=== PATIENT | female | born 1980 | race Caucasian/White ===

== ENCOUNTER → 2020-02-28 09:13 | Outpatient (BNVA) | payer MEDICAID, SELFPAY | PROVIDERS: Family Provider Nurse Practitioner Family; PCP Nurse Practitioner Family; Visit Provider Internal Medicine Rheumatology | DX: L40.8 Other psoriasis (principal); M19.90 Unspecified osteoarthritis, unspecified site; Z11.59 Encounter for screening for other viral diseases; Z79.899 Other long term (current) drug therapy; R76.8 Other specified abnormal immunological findings in serum; M54.5 Low back pain; F17.210 Nicotine dependence, cigarettes, uncomplicated; Z11.1 Encounter for screening for respiratory tuberculosis; Z72.89 Other problems related to lifestyle | CPT/HCPCS: 99204 ==

== ENCOUNTER 2020-02-28 10:31 | Outpatient (CLI) | payer MEDICAID, SELFPAY ==
--- NOTE | 2020-02-28 10:37 | XR_ITS ---
WS: [id number] LEFT HAND: 3 VIEW(S) TECHNIQUE: PA, oblique and lateral. HISTORY: inflammatory arthritis COMPARISON: None available. No acute fracture or dislocation. No soft tissue or bone abnormality. No erosions. XR/XR hand LT min 3V* [id number] IMPRESSION: Normal LEFT hand.
--- NOTE | 2020-02-28 10:37 | XR_ITS ---
WS: [id number] RIGHT FOOT: 3 VIEW(S) TECHNIQUE: AP, oblique and lateral. HISTORY: inflammatory arthritis COMPARISON: None available. No acute fracture or dislocation. Normal tarsal/metatarsal alignment. No soft tissue abnormality or bone destruction. XR/XR foot RT min 3V* [id number] IMPRESSION: Normal RIGHT foot.
--- NOTE | 2020-02-28 10:37 | XR_ITS ---
WS: [id number] LEFT FOOT: 3 VIEW(S) TECHNIQUE: AP, oblique and lateral. HISTORY: inflammatory arthritis COMPARISON: None available. No acute fracture or dislocation. Normal tarsal/metatarsal alignment. No soft tissue abnormality or bone destruction. XR/XR foot LT min 3V* [id number] IMPRESSION: Normal LEFT foot.
--- NOTE | 2020-02-28 10:37 | XR_ITS ---
WS: [id number] CHEST 2 VIEWS HISTORY: inflammatory arthritis COMPARISON: None available. Lungs: Hyperinflation and flattening of the diaphragms. Otherwise lungs are clear. No pneumonia. No n odules. Cardiac size: Normal. Mediastinum/Aorta: Normal mediastinum. Bones: Normal. XR/XR chest 2V* [id number] IMPRESSION: Mild emphysema. Otherwise negative.
--- NOTE | 2020-02-28 10:37 | XR_ITS ---
WS: [id number] RIGHT HAND: 3 VIEW(S) TECHNIQUE: PA, oblique and lateral. HISTORY: inflammatory arthritis COMPARISON: None available. No acute fracture or dislocation. No soft tissue or bone abnormality. No erosions. XR/XR hand RT min 3V* [id number] IMPRESSION: Normal RIGHT hand.
== END 2020-02-28 10:32 | disposition home or self-care (01) ==
LOC: RADWPI 10:36
PROVIDERS: Family Provider Nurse Practitioner Family; PCP Nurse Practitioner Family; Visit Provider Internal Medicine Rheumatology
DX: L40.8 Other psoriasis (principal); M19.90 Unspecified osteoarthritis, unspecified site; Z11.59 Encounter for screening for other viral diseases; Z79.899 Other long term (current) drug therapy; R76.8 Other specified abnormal immunological findings in serum; M54.5 Low back pain; F17.210 Nicotine dependence, cigarettes, uncomplicated; Z11.1 Encounter for screening for respiratory tuberculosis; Z72.89 Other problems related to lifestyle; J43.9 Emphysema, unspecified
CPT/HCPCS: 36415; 71046; 73130; 73630; 80076; 82306; 82565; 85025; 85651; 86140; 86480; 86704; 86803; 86812; 87340

== ENCOUNTER → 2020-03-31 15:00 | Outpatient (BNVA) | payer MEDICAID, SELFPAY | PROVIDERS: Family Provider Nurse Practitioner Family; PCP Nurse Practitioner Family; Visit Provider Internal Medicine Rheumatology | DX: L40.3 Pustulosis palmaris et plantaris (principal); L40.50 Arthropathic psoriasis, unspecified; M19.90 Unspecified osteoarthritis, unspecified site; R76.8 Other specified abnormal immunological findings in serum; L40.9 Psoriasis, unspecified; M54.5 Low back pain; G89.29 Other chronic pain; M54.31 Sciatica, right side | CPT/HCPCS: 99214 ==

== ENCOUNTER → 2020-04-30 08:57 | Outpatient (BNVA) | payer MEDICAID, SELFPAY | PROVIDERS: Family Provider Nurse Practitioner Family; PCP Nurse Practitioner Family; Visit Provider Internal Medicine Rheumatology | DX: Z79.899 Other long term (current) drug therapy (principal) | CPT/HCPCS: 36415; 80076; 82565; 85025; 85651; 86140 ==

== ENCOUNTER 2020-05-22 13:18 | Outpatient (CLI) | payer MEDICAID, SELFPAY ==
[2020-05-22] MEDS: iohexol 300 mg/mL 50 mL Btl PO (13:43)
--- NOTE | 2020-05-22 15:00 | CT_ITS ---
WS: [id number] CT ABDOMEN AND PELVIS WITH CONTRAST HISTORY: Abdominal pain, RIGHT upper abdominal pain. TECHNIQUE: Imaging performed of the abdomen and pelvis with IV contrast. Single phase imaging of the abdomen. Coronal and sagittal reformats are submitted. All CT scans at [facility] use at least one of these dose optimization techniques: automated exposure control; mA and/or kV adjustment per patient size (includes targeted exams where dose is matched to clinical indication); or iterativ e reconstruction. IV CONTRAST: Omnipaque 300; 95 mL IV. Oral contrast: Yes. DLP: 1093.11 mGycm COMPARISON: None available. Lower thorax: Lung bases are clear. Heart is normal size. No hiatal hernia. Liver/biliary system: Normal size with no intrahepatic dilatation. Gallbladder: Normal. No gallstones or wall thickening. No pericholecystic fluid. Pancreas: Normal. Spleen: Normal. Adrenal glands: Normal. Right kidney: Normal. Left kidney: Cortical hypodensity in the lower pole measures 8 mm. No obstruction or calcifications. Aorta: Normal. Lymphadenopathy: None. Free fluid: None. GI tract: The appendix has been surgically removed. No GI tract obstruction. There are very few diver ticula in the sigmoid colon. No evidence for acute inflammation. No mucosal thickening or edema. Abdominal wall: Unremarkable abdominal wall. No hernia. Pelvis: Uterus is midline. Both ovaries contain small follicles. No free fluid or adenopathy. Urinary bladder is minimally distended. Bones: Grade 1 anterolisthesis of L5 due to bilateral pars defects. Anterolisthesis [address]/CT abdomen pelvis w con* [id number] IMPRESSION: 1. No acute abdominal or pelvic abnormalities. 2. Prior appendectomy. 3. No acute inflammatory process.
[2020-05-22] MEDS: iohexol 300 mg/mL 100 mL Btl IV (15:01)
== END 2020-05-22 13:19 | disposition home or self-care (01) ==
LOC: RADWPI 13:21
PROVIDERS: Family Provider Nurse Practitioner Family; PCP Nurse Practitioner Family; Visit Provider Nurse Practitioner Family
DX: R10.11 Right upper quadrant pain (principal)
CPT/HCPCS: 74177; Q9967

== ENCOUNTER → 2020-07-15 09:04 | Outpatient (BNVA) | payer MEDICAID, SELFPAY | PROVIDERS: Family Provider Nurse Practitioner Family; PCP Nurse Practitioner Family; Visit Provider Internal Medicine Rheumatology | DX: L40.50 Arthropathic psoriasis, unspecified (principal); M19.90 Unspecified osteoarthritis, unspecified site; Z79.899 Other long term (current) drug therapy; R76.8 Other specified abnormal immunological findings in serum; L40.3 Pustulosis palmaris et plantaris; M47.816 Spondylosis without myelopathy or radiculopathy, lumbar region; G89.29 Other chronic pain; F17.210 Nicotine dependence, cigarettes, uncomplicated | CPT/HCPCS: 99214 ==

== ENCOUNTER → 2020-07-22 11:10 | Outpatient (BNVA) | payer MEDICAID, SELFPAY | PROVIDERS: Family Provider Nurse Practitioner Family; PCP Nurse Practitioner Family; Visit Provider Nurse Practitioner Family | DX: R35.0 Frequency of micturition (principal) | CPT/HCPCS: 81000 ==

== ENCOUNTER → 2020-07-30 16:30 | Outpatient (BNVA) | payer MEDICAID, SELFPAY | PROVIDERS: Family Provider Nurse Practitioner Family; PCP Nurse Practitioner Family; Visit Provider Nurse Practitioner Family | DX: Z20.828 Contact with and (suspected) exposure to other viral communicable diseases (principal) | CPT/HCPCS: 87635 ==

== ENCOUNTER → 2020-08-04 15:04 | Outpatient (BNVA) | payer MEDICAID, SELFPAY | PROVIDERS: Family Provider Nurse Practitioner Family; PCP Nurse Practitioner Family; Visit Provider Nurse Practitioner Family | DX: R68.89 Other general symptoms and signs (principal) | CPT/HCPCS: 87400 ==

== ENCOUNTER → 2020-08-26 15:17 | Outpatient (BNVA) | payer MEDICAID, SELFPAY | PROVIDERS: Family Provider Nurse Practitioner Family; PCP Nurse Practitioner Family; Visit Provider Internal Medicine Rheumatology | DX: L40.50 Arthropathic psoriasis, unspecified (principal); Z79.899 Other long term (current) drug therapy; L40.3 Pustulosis palmaris et plantaris; G57.03 Lesion of sciatic nerve, bilateral lower limbs; B34.9 Viral infection, unspecified; M47.816 Spondylosis without myelopathy or radiculopathy, lumbar region; F17.210 Nicotine dependence, cigarettes, uncomplicated | CPT/HCPCS: 36415; 80076; 82565; 85025; 85651; 86140; 99214 ==

== ENCOUNTER → 2020-10-29 14:56 | Outpatient (BNVA) | payer BC, MEDICAID, SELFPAY | PROVIDERS: Family Provider Nurse Practitioner Family; PCP Nurse Practitioner Family; Visit Provider Nurse Practitioner Family | DX: M54.9 Dorsalgia, unspecified (principal); M54.6 Pain in thoracic spine; M54.5 Low back pain; G89.29 Other chronic pain | CPT/HCPCS: 81000 ==

== ENCOUNTER 2020-11-03 09:18 | Outpatient (CLI) | payer BC, MEDICAID, SELFPAY ==
--- NOTE | 2020-11-03 09:30 | MR_ITS ---
WS: [id number] MRI RIGHT KNEE NONCONTRAST TECHNIQUE: Axial PD, coronal PD fat sat, coronal PD, sagittal PD, and sagittal PD fat-sat images obta ined. CLINICAL INFORMATION: M25.569 - Pain in unspecified knee COMPARISON: None. FINDINGS: Normal ACL and normal PCL. Small suprapatellar effusion. Mild chronic thinning of the medial and late ral meniscus. No acute appearing meniscal tears. Moderate chondromalacia patella. No subchondral trisha a. Normal medial and lateral patellar retinaculum. Normal medial and lateral collateral ligaments. Moderate chondromalacia involving the medial and late ral joint compartments somewhat advanced for patient this age. No subchondral edema. Normal popliteal fossa. No Lopez's cyst. MR/MR knee RT wo con* [id number] IMPRESSION: 1. Normal anterior and posterior cruciate ligaments. 2. No acute appearing meniscal tears. Mild chronic thinning of the medial and lateral meniscus. 3. Moderate chondromalacia involving the medial lateral joint compartments yon ewhat advanced for patient this age. 4. Moderate chondral malacia patella. No subchondral edema. 5. Normal medial and lateral collateral ligaments.
== END 2020-11-03 09:19 | disposition home or self-care (01) ==
LOC: RADSHAW 09:22
PROVIDERS: Family Provider Nurse Practitioner Family; PCP Nurse Practitioner Family; Visit Provider Nurse Practitioner Family
DX: M22.41 Chondromalacia patellae, right knee (principal)
CPT/HCPCS: 73721

== ENCOUNTER → 2020-11-18 08:15 | Outpatient (BNVA) | payer BC, MEDICAID, SELFPAY | PROVIDERS: Family Provider Nurse Practitioner Family; PCP Nurse Practitioner Family; Referring Provider Nurse Practitioner Family; Visit Provider Orthopaedic Surgery | DX: M25.561 Pain in right knee (principal) | CPT/HCPCS: 73560; 73565 ==

== ENCOUNTER → 2020-11-20 10:45 | Outpatient (BNVA) | payer BC, MEDICAID, SELFPAY | PROVIDERS: Family Provider Nurse Practitioner Family; PCP Nurse Practitioner Family; Visit Provider Internal Medicine Rheumatology | DX: Z79.899 Other long term (current) drug therapy (principal) | CPT/HCPCS: 80076; 82565; 85025; 85651; 86140 ==

== ENCOUNTER → 2020-11-27 09:56 | Outpatient (BNVA) | payer BC, MEDICAID, SELFPAY | PROVIDERS: Family Provider Nurse Practitioner Family; PCP Nurse Practitioner Family; Visit Provider Internal Medicine Rheumatology | DX: R76.8 Other specified abnormal immunological findings in serum (principal); L40.50 Arthropathic psoriasis, unspecified; L40.3 Pustulosis palmaris et plantaris; M17.11 Unilateral primary osteoarthritis, right knee; M25.469 Effusion, unspecified knee; M54.31 Sciatica, right side; Z79.899 Other long term (current) drug therapy; F17.210 Nicotine dependence, cigarettes, uncomplicated | CPT/HCPCS: 99214 ==

== ENCOUNTER → 2020-12-19 09:46 | Outpatient (BNVA) | payer BC, MEDICAID, SELFPAY | PROVIDERS: Family Provider Nurse Practitioner Family; PCP Nurse Practitioner Family; Visit Provider Nurse Practitioner Family | DX: Z20.822 Contact with and (suspected) exposure to COVID-19 (principal) | CPT/HCPCS: 87635 ==

== ENCOUNTER → 2020-12-25 09:39 | Outpatient (BNVA) | payer BC, MEDICAID, SELFPAY | PROVIDERS: Family Provider Nurse Practitioner Family; PCP Nurse Practitioner Family; Visit Provider Internal Medicine Rheumatology | DX: Z79.899 Other long term (current) drug therapy (principal) | CPT/HCPCS: 36415; 80076; 82565; 85025; 86140 ==

== ENCOUNTER → 2021-04-02 08:46 | Outpatient (BNVA) | payer BC, MEDICAID, SELFPAY | PROVIDERS: Family Provider Nurse Practitioner Family; PCP Nurse Practitioner Family; Visit Provider Internal Medicine Rheumatology | DX: L40.50 Arthropathic psoriasis, unspecified (principal); Z79.899 Other long term (current) drug therapy | CPT/HCPCS: 80076; 82565; 85025; 86140 ==

== ENCOUNTER → 2021-04-06 10:35 | Outpatient (BNVA) | payer BC, MEDICAID, SELFPAY | PROVIDERS: Family Provider Nurse Practitioner Family; PCP Nurse Practitioner Family; Visit Provider Internal Medicine Rheumatology | DX: L40.50 Arthropathic psoriasis, unspecified (principal); Z79.899 Other long term (current) drug therapy; L40.3 Pustulosis palmaris et plantaris; M77.01 Medial epicondylitis, right elbow; M77.11 Lateral epicondylitis, right elbow; M77.02 Medial epicondylitis, left elbow; F17.210 Nicotine dependence, cigarettes, uncomplicated | CPT/HCPCS: 99214 ==

== ENCOUNTER → 2021-04-10 13:47 | Outpatient (BNVA) | payer BC, MEDICAID, SELFPAY | PROVIDERS: Family Provider Nurse Practitioner Family; PCP Nurse Practitioner Family; Visit Provider Nurse Practitioner Family | DX: R30.0 Dysuria (principal); T50.905A Adverse effect of unspecified drugs, medicaments and biological substances, initial encounter | CPT/HCPCS: 81000 ==

== ENCOUNTER → 2021-08-05 10:51 | Outpatient (BNVA) | payer BC, MEDICAID, SELFPAY | PROVIDERS: Family Provider Nurse Practitioner Family; PCP Nurse Practitioner Family; Visit Provider Internal Medicine Rheumatology | DX: L40.50 Arthropathic psoriasis, unspecified (principal); L40.3 Pustulosis palmaris et plantaris; Z79.899 Other long term (current) drug therapy; M77.10 Lateral epicondylitis, unspecified elbow; M47.896 Other spondylosis, lumbar region; M17.11 Unilateral primary osteoarthritis, right knee; M54.31 Sciatica, right side; M54.32 Sciatica, left side; K02.9 Dental caries, unspecified; Z71.89 Other specified counseling; F17.210 Nicotine dependence, cigarettes, uncomplicated | CPT/HCPCS: 99214 ==

== ENCOUNTER → 2021-08-06 11:09 | Outpatient (BNVA) | payer BC, MEDICAID, SELFPAY | PROVIDERS: Family Provider Nurse Practitioner Family; PCP Nurse Practitioner Family; Visit Provider Internal Medicine Rheumatology | DX: L40.50 Arthropathic psoriasis, unspecified (principal); Z79.899 Other long term (current) drug therapy; Z71.89 Other specified counseling | CPT/HCPCS: G0463 ==

== ENCOUNTER 2021-10-10 15:06 | Emergency (ER) | payer BC, MEDICAID, SELFPAY ==
[2021-10-10 15:17] VITALS: BP 162/89; PULSE 73; RESP 16; TEMP 36.7; O2SAT 97
--- NOTE | 2021-10-10 15:28 | ECG_ITS ---
[facility] Test Date: 2021-10-10 Pat Name: Barbara Louis Department: Room: Gender: Female Python Developer: : 1980 Requested By: Rakel Forte Order Number: [id number] Reading MD: MORENA YEE Measurements Intervals [place] Rate: 70 P: 42 OK: 151 QRS: 54 QRSD: 91 T: 40 QT: 355 QTc: 383 Interpretive Statements SINUS RHYTHM No previous ECG available for comparison Electronically Signed On 10-11-2021 19:58:59 [employer] by MORENA YEE [email or web address]
--- NOTE | 2021-10-10 15:28 | XRR_ITS ---
PROCEDURE INFORMATION: Exam: XR Chest Exam date and time: 10/10/2021 3:28 PM Age: 41 years old Clinical indication: Cough; Additional info: Chest pain TECHNIQUE: Imaging protocol: XR of the chest. Views: 1 view. COMPARISON: CR XR knees AP WB w RT lmt ORTH 11/18/2020 8:21 AM FINDINGS: Lungs: Lungs are clear. Pleural spaces: There is no pleural effusion or pneumothorax. Heart/Mediastinum: Cardiomediastinal contours are unremarkable. Bones/joints: Bones are unremarkable. XR/XR chest 1V portable [id number] IMPRESSION: No acute findings.
== END 2021-10-10 16:53 | disposition left against medical advice (07) ==
LOC: ER 15:49
PROVIDERS: Emergency Provider Family Medicine; PCP Nurse Practitioner Family
DX: Z53.21 Procedure and treatment not carried out due to patient leaving prior to being seen by health care provider (principal)
CPT/HCPCS: 71045; 93005; 99282

== ENCOUNTER → 2021-10-13 10:24 | Outpatient (BNVA) | payer BC, MEDICAID, SELFPAY | PROVIDERS: PCP Nurse Practitioner Family; Visit Provider Nurse Practitioner Family | DX: R53.83 Other fatigue (principal) | CPT/HCPCS: 85025 ==

== ENCOUNTER → 2021-10-26 09:27 | Outpatient (BNVA) | payer BC, MEDICAID, SELFPAY | PROVIDERS: PCP Nurse Practitioner Family; Visit Provider Nurse Practitioner Family | DX: E78.5 Hyperlipidemia, unspecified (principal); I10 Essential (primary) hypertension; M19.90 Unspecified osteoarthritis, unspecified site; Z79.899 Other long term (current) drug therapy | CPT/HCPCS: 80053; 80061; 80076; 82565; 86140 ==

== ENCOUNTER → 2021-11-16 11:34 | Outpatient (BNVA) | payer BC, MEDICAID, SELFPAY | PROVIDERS: PCP Nurse Practitioner Family; Visit Provider Nurse Practitioner Family | DX: Z20.822 Contact with and (suspected) exposure to COVID-19 (principal); R50.9 Fever, unspecified | CPT/HCPCS: 87633; 87635 ==

== ENCOUNTER → 2021-12-10 09:58 | Outpatient (BNVA) | payer BC, MEDICAID, SELFPAY | PROVIDERS: PCP Nurse Practitioner Family; Visit Provider Internal Medicine Rheumatology | DX: L40.50 Arthropathic psoriasis, unspecified (principal); L40.3 Pustulosis palmaris et plantaris; Z79.899 Other long term (current) drug therapy; M47.896 Other spondylosis, lumbar region; M17.11 Unilateral primary osteoarthritis, right knee; G57.03 Lesion of sciatic nerve, bilateral lower limbs; K02.9 Dental caries, unspecified; Z71.89 Other specified counseling | CPT/HCPCS: 99214 ==

== ENCOUNTER → 2022-03-11 14:09 | Outpatient (BNVA) | payer BC, MEDICAID, SELFPAY | PROVIDERS: PCP Nurse Practitioner Family; Visit Provider Internal Medicine Rheumatology | DX: L40.50 Arthropathic psoriasis, unspecified (principal); L40.3 Pustulosis palmaris et plantaris; Z79.899 Other long term (current) drug therapy; G57.03 Lesion of sciatic nerve, bilateral lower limbs; Z71.89 Other specified counseling | CPT/HCPCS: 80076; 82565; 85025; 86140; 99214 ==

== ENCOUNTER → 2022-07-07 15:08 | Outpatient (BNVA) | payer BC, MEDICAID, SELFPAY | PROVIDERS: PCP Nurse Practitioner Family; Visit Provider Nurse Practitioner Family | DX: N89.8 Other specified noninflammatory disorders of vagina (principal); Z12.39 Encounter for other screening for malignant neoplasm of breast; Z12.4 Encounter for screening for malignant neoplasm of cervix | CPT/HCPCS: 87070; 87205; 88175 ==

== ENCOUNTER 2022-07-08 11:15 | Outpatient (CLI) | payer BC, MEDICAID, SELFPAY ==
--- NOTE | 2022-07-08 11:28 | XR_ITS ---
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 Findings: No compression fractures are seen. There is degenerative disc narrowing at L5-S1 with a 0.8 cm sublu xation of L5 on S1. There is disc narrowing at L4-L5. The transverse processes and SI joints are norm al. There is a slight dextroscoliosis of the lumbar spine. XR/XR lumbar spine 2-3V* [id number] Impression: 1. Degenerative disc narrowing at L5-S1 with a 0.8 cm subluxation of L5 on S1. 2. Degenerative disc narrowing at L4-L5 with a minimal dextroscoliosis.
--- NOTE | 2022-07-08 11:28 | XR_ITS ---
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 Findings: No fractures or dislocations are seen. The SI joints and pubic symphysis are intact. The soft tissues are not remarkable. XR/XR pelvis 1-2V* [id number] Impression: Negative for fracture.
--- NOTE | 2022-07-08 11:28 | XR_ITS ---
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 There is medial joint compartment narrowing with small spurs o f the medial femoral condyle and medial tibial plateau. The patella is intact. The soft tissues are u nremarkable. XR/XR knee RT 3V* [id number] Impression: Minimal medial joint compartment narrowing and spurring of the right knee Kellgren-Jose Classification: grade 1 (doubtful): doubtful joint space narr owing and possible osteophytic lipping
--- NOTE | 2022-07-08 11:28 | XR_ITS ---
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 There is minimal medial joint compartment narrowing with small spurs of the medial femoral condyle and medial tibial plateau. The patella is intact. The soft tissu es are unremarkable. XR/XR knee LT 3V* [id number] Impression: Mild osteoarthritis of the left knee Kellgren-Jose Classification: grade 1 (doubtful): doubtful joint space narr owing and possible osteophytic lipping
[2022-07-08 12:04] LABS: Basophils # 0.1 10^3/uL (0.0-0.1); Basophils % 1.3 %; Eosinophils # 0.3 10^3/uL (0.0-0.8); Eosinophils % 3.1 %; Hematocrit 42.8 % (37.0-47.0); Hemoglobin 13.8 g/dL (11.5-15.3); Lymphocytes # 3.8 10^3/uL (0.8-4.8); Lymphocytes % 36.9 %; Mean Corpuscular HGB Conc 32.2 g/dL (30.0-36.0); Mean Corpuscular Hemoglobin 30.4 pg (28.0-34.0); Mean Corpuscular Volume 94.3 fl (81-99); Mean Platelet Volume 9.9 fL (7.4-10.4); Monocytes # 0.8 10^3/uL (0.2-0.9); Monocytes % 7.5 %; Neutrophils # 5.22 10^3/uL (1.8-7.7); Neutrophils % 50.9 %; Nucleated Red Blood Cells % 0 %; Platelet Count 298 10^3/cmm (130-400); Red Blood Count 4.54 10^6/uL (4.1-5.3); White Blood Count 10.3 10^3/uL (4.0-10.0)
[2022-07-08 12:15] LABS: Erythrocyte Sedimentation Rate 6 mm/hr (0-15)
[2022-07-08 12:34] LABS: Alanine Aminotransferase 19 U/L (0-33); Albumin Level 4.1 g/dL (3.5-5.2); Alkaline Phosphatase 98 U/L (35-105); Aspartate Amino Transferase 14 U/L (0-32); C Reactive Protein 4.1 mg/L (0.0-4.9); Free T4 Free Thyroxine 1.03 ng/dL (0.82-1.77); Globulin 2.9 g/dL (1.3-4.6); Glomerular Filtration Rate 111.3 mL/min (90-130); Thyroid Stimulating Hormone 1.46 uIU/mL (0.27-4.20); Total Bilirubin 0.2 mg/dL (0.15-1.2)
[2022-07-08 13:14] LABS: 25 Hydroxy Vitamin D 27 ng/mL (30-100)
== END 2022-07-08 11:16 | disposition home or self-care (01) ==
LOC: LAB 11:16
PROVIDERS: PCP Nurse Practitioner Family; Visit Provider Internal Medicine Rheumatology
DX: Z79.899 Other long term (current) drug therapy (principal); L40.50 Arthropathic psoriasis, unspecified; S33.39XA Dislocation of other parts of lumbar spine and pelvis, initial encounter; X58.XXXA Exposure to other specified factors, initial encounter; M41.86 Other forms of scoliosis, lumbar region; M17.12 Unilateral primary osteoarthritis, left knee
CPT/HCPCS: 36415; 72100; 72170; 73562; 80076; 82306; 82565; 84439; 84443; 85025; 85651; 86140

== ENCOUNTER 2022-07-14 10:16 | Outpatient (CLI) | payer BC, MEDICAID, SELFPAY ==
--- NOTE | 2022-07-14 11:14 | MM_ITS ---
WS: [id number] Bilateral screening 3D tomosynthesis digital mammogram, 07/14/2022 Clinical Data: Z12.39 - Encounter for other screening for malignant neop... Comparison: 08/16/2019. Findings: The breast parenchymal pattern shows glandular tissue. No spiculated masses or clustered calcificatio ns are seen. There are no secondary signs of carcinoma. MM/[place] [id number] Impression: 1. Negative bilateral mammogram unchanged. 2. Recommend annual screening mammograms. BIRADS: 1-Negative FOLLOW UP: 1 Year Follow-up The CAD loading checker was used.
== END 2022-07-14 10:17 | disposition home or self-care (01) ==
LOC: RAD 10:18
PROVIDERS: PCP Nurse Practitioner Family; Visit Provider Nurse Practitioner Family
DX: Z12.31 Encounter for screening mammogram for malignant neoplasm of breast (principal)
CPT/HCPCS: 77063; 77067

== ENCOUNTER 2022-08-05 08:27 | Outpatient (CLI) | payer BC, MEDICAID, SELFPAY ==
--- NOTE | 2022-08-05 09:30 | MR_ITS ---
WS: [id number] MRI LUMBAR SPINE NONCONTRAST TECHNIQUE: Sagittal T1, T2 and STIR imaging. Axial T1 and T2 imaging. CLINICAL INFORMATION: M47.27 - Other spondylosis with radiculopathy, lumbosacra... COMPARISON: CT lumbar 2016 FINDINGS: Mild lumbar curve. No acute compression. Grade 1 anterolisthesis L5 on S1 measuring 7 mm with chronic spondylolysis slightly progressed compared to 16. No acute compression fractures. Small disc protru sions in the lower thoracic spine more prominent at T9-T10. T12-L1: Shallow LEFT pericentral protrusion. Slight effacement of ventral thecal sac. Spinal canal an d foramen are patent. Mild facet arthropathy. L1-L2: Mild facet arthropathy. Mild LEFT and no significant RIGHT foraminal narrowing. Slight narrowi ng of the LEFT subarticular recess. L2-L3: No significant disc bulging. Mild facet arthropathy. Spinal canal and foramen are patent. L3-L4: Mild annular bulging. Tiny central protrusion. Moderate facet arthropathy. Mild bilateral fora jolie narrowing. Spinal canal is patent. L4-L5: Shallow central disc protrusion. Slight effacement of ventral thecal sac. Moderate facet arthr opathy. Mild LEFT foraminal narrowing. RIGHT foramen is patent. L5-S1: Grade 1 anterolisthesis L5 on S1 measuring 7 mm. Advanced facet arthropathy. Chronic spondylol ysis. Disc osteophyte complex impinges the traversing RIGHT S1 nerve root. Moderate RIGHT and no sign ificant LEFT foraminal narrowing. Partially evaluated RIGHT ovarian cyst measuring 2.5 x 2.4 CM. MR/MR lumbar spine wo con* [id number] IMPRESSION: 1. Mild lumbar curve. No acute compression. No high-grade central canal stenos is. 2. Grade 1 anterolisthesis L5 on S1 measuring 7 mm with chronic spondylolysis progressed compared to 2016. Moderate RIGHT L5-S1 foraminal narrowing. Impingem ent traversing RIGHT S1 nerve root in the subarticular recess. 3. Shallow LEFT pericentral protrusion L1-L2 with slight narrowing of the LEFT subarticular recess. 4. Mild bilateral L4-L5 bony foraminal narrowing. 5. Moderate facet arthropathy L3-L4 and L4-L5. Advanced arthropathy L5-S1. 6. A few small protrusions in the thoracic spine seen on the football scout imaging. 7. Shallow LEFT pericentral protrusion T12-L1 with narrowing of the LEFT subar ticular recess.
== END 2022-08-05 08:28 | disposition home or self-care (01) ==
LOC: RAD 08:28
PROVIDERS: PCP Nurse Practitioner Family; Visit Provider Nurse Practitioner Family
DX: M47.27 Other spondylosis with radiculopathy, lumbosacral region (principal); M48.07 Spinal stenosis, lumbosacral region; M51.26 Other intervertebral disc displacement, lumbar region; M51.24 Other intervertebral disc displacement, thoracic region
CPT/HCPCS: 72148

== ENCOUNTER → 2022-08-31 09:50 | Outpatient (BNVA) | payer BC, MEDICAID, SELFPAY | PROVIDERS: PCP Nurse Practitioner Family; Visit Provider Physician Assistant | DX: M47.27 Other spondylosis with radiculopathy, lumbosacral region (principal); M43.17 Spondylolisthesis, lumbosacral region; M51.26 Other intervertebral disc displacement, lumbar region | CPT/HCPCS: 72110 ==

== ENCOUNTER → 2022-09-13 16:18 | Outpatient (BNVA) | payer BC, MEDICAID, SELFPAY | PROVIDERS: PCP Nurse Practitioner Family; Visit Provider Nurse Practitioner Family | DX: R05.9 Cough, unspecified (principal); L40.50 Arthropathic psoriasis, unspecified | CPT/HCPCS: 87400 ==

== ENCOUNTER → 2022-11-01 16:11 | Outpatient (BNVA) | payer BC, MEDICAID, SELFPAY | PROVIDERS: PCP Nurse Practitioner Family; Visit Provider Nurse Practitioner Family | DX: N39.0 Urinary tract infection, site not specified (principal); E86.0 Dehydration | CPT/HCPCS: 81000 ==

== ENCOUNTER → 2022-11-09 15:27 | Outpatient (BNVA) | payer BC, MEDICAID, SELFPAY | PROVIDERS: PCP Nurse Practitioner Family; Visit Provider Internal Medicine Rheumatology | DX: Z79.899 Other long term (current) drug therapy (principal); L40.50 Arthropathic psoriasis, unspecified | CPT/HCPCS: 36415; 80076; 82565; 85025; 86140 ==

== ENCOUNTER 2022-12-12 12:23 | Emergency (ER) | payer BC, MEDICAID, SELFPAY ==
[2022-12-12 12:30] VITALS: BP 140/74; PULSE 87; RESP 20; TEMP 36.3; O2SAT 95
--- NOTE | 2022-12-12 12:55 | XRR_ITS ---
PROCEDURE INFORMATION: Exam: XR Chest Exam date and time: 12/12/2022 1:22 PM Age: 42 years old Clinical indication: Cough; Additional info: Cough congestion TECHNIQUE: Imaging protocol: Radiologic exam of the chest. Views: 1 view. COMPARISON: CR XR chest 1V portable [id number] 10/10/2021 3:54 PM FINDINGS: Lungs: Unremarkable. No consolidation. Pleural spaces: Unremarkable. No pleural effusion. No pneumothorax. Heart/Mediastinum: Unremarkable. No cardiomegaly. Bones/joints: Unremarkable. XR/XR chest 1V portable [id number] IMPRESSION: No acute findings.
--- NOTE | 2022-12-12 12:57 | ED_ITS ---
HPI - Extremity Problem General: Chief complaint: Extremity Injury, Lower Stated complaint: possible infection of biopsy site Time Seen by Provider: 12/12/22 12:25 History of Present Illness: Patient is a 42-year-old female that presents to the emergency department with complaints of foot pain and swelling. Although during our initial discussion patient also reports overall feeling poor. She has chest congestion, cough, vomiting, headache. Onset of symptoms in the last 24 hours. Patient is recently started a new medication and had biopsies to bilateral feet by her asp net c developer. New prescribed medications Xeljanz. Associated symptoms: Deny chest pain, fever(s) or rash Review of Systems General: Reports: 10 or more systems reviewed and unremarkable except in HPI and below Const: Denies: fever(s), chills, change in appetite, change in weight, fatigue or malaise Eyes: Denies: change in vision, eye discomfort, eye discharge or eye redness ENMT: Denies: throat pain, enlarged tonsils, odynophagia, hoarseness, ear or mastoid pain, ear discharge, change in hearing, tinnitus, nasal discharge, nasal congestion, post nasal drip or sinus pain Card: Denies: chest pain, palpitations, irregular heart rhythm, edema, dyspnea on exertion, orthopnea or leg pain with exertion Resp: Reports: non-productive cough and chest congestion; Denies: dyspnea, productive cough, wheezing or stridor GI: Reports: nausea and vomiting; Denies: abdominal pain, dysphagia, diarrhea, constipation, bloating, GI cramping or hematochezia : Denies: flank pain, difficulty voiding, dysuria, urinary frequency, urinary urgency, urinary hesitancy, oliguria or hematuria Musc: Denies: neck pain, back pain, extremity pain, joint pain, joint swelli ng, joint redness, joint warmth or muscle weakness Skin/Breast: Denies: rash, pruritus, erythema, photosensitivity or new lesions Neuro: Denies: headache(s), numbness in extremities, weakness in extremities, sensory changes, lack of coordination, difficulty walking, frequent falls, dizziness, confusion, Slurred speech present, difficulty communicating thoughts, seizure-like activity or involuntary movements Endo: Denies: polyuria, polydipsia or tired all the time Grover/Lymph: Denies: easy bruising or easy bleeding PFSH ED PFSH: Medical History 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 Asthma Chronic low back pain 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, lateral (tennis elbow) High risk medication use Immunization counseling Inflammatory arthritis Low back pain Palmoplantar pustular psoriasis Piriformis syndrome of both sides Psoriasis Psoriatic arthritis Tobacco abuse disorder Viral syndrome Surgical History History of laparoscopy ovarian cyst History of tubal ligation Family History Other Diabetes Hypertension Rheumatoid arthritis Denies family history of Lupus CAD (coronary artery disease) Chronic kidney disease (CKD) Cancer Stroke Social History Smoking and tobacco status: current every day smoker cigarettes Alcohol intake: current Alcohol intake frequency: holidays/special occasions only Alcohol type: wine Adopted: No Lives independently: Yes Household members: spouse, family and children Physical Exam Const: COMMON NORMALS: no acute distress, patient oriented x3 and alert GENERAL APPEARANCE: cooperative ORIENTATION/CONSCIOUSNESS: Yes awake, Yes oriented to person, Yes oriented to place and Yes oriented to time HENMT: COMMON NORMALS: normocephalic and atraumatic HEAD & SCALP: normocephalic and atraumatic FACE & SINUS: normal facial exam MOUTH: Normal oral and palatal mucosa present THROAT: posterior oropharynx normal Eye: COMMON NORMALS: Equal, round and reactive pupils present, EOMs intact bilaterally, conjunctivae normal and no scleral icterus GENERAL EYE: appearance normal, both eyes and all related structures ALIGNMENT: Yes alignment normal PERIORBITAL: periorbital findings normal CONJUNCTIVA: Yes conjunctivae normal PUPIL: Yes Equal, round and reactive pupils present Neck/C-Spine: COMMON NORMALS: full ROM GENERAL: Yes normal visual inspection Lymph: LYMPHATIC: no lymphadenopathy noted Chest: COMMONS NORMALS: normal inspection of the chest Breast/axilla insp ection: Yes no chest deformity, asymmetry, normal contours, no nodules, masses, tenderness Resp: COMMON NORMALS: normal respiratory effort, No retractions, No use of accessory muscles and clear to auscultation bilaterally EFFORT & INSPECTION: Yes able to speak in complete sentences and Yes symmetric chest movement AUSCULTATION: clear to auscultation bilaterally Cardio: COMMON NORMALS: regular rate, regular rhythm and Peripheral pulses 2+ throughout RATE: regular rate RHYTHM: regular rhythm PERIPHERAL PULSES: Peripheral pulses 2+ throughout GI: COMMON NORMALS: Normal to inspection, nondistended, normoactive bowel sounds present, Soft to palpation, non-tender and No hepatosplenomegaly present INSPECTION: Yes normal to inspection AUSCULTATION: Yes normoactive bowel sounds PALPATION: Yes Soft to palpation, Yes Tenderness to palpation present (GI) Details: LLQ and LUQ and Yes No hepatosplenomegaly present RECTAL EXAM: deferred Extremity: COMMON NORMALS: normal to inspection GENERAL: Yes normal exam except as noted Neuro: COMMON NORMALS: patient oriented x3 SENSORIUM/ORIENTATION: Yes alert, Yes oriented to person, Yes oriented to place and Yes oriented to time CRANIAL NERVES: Yes CN normal except as noted Psych: COMMON NORMALS: mental status grossly normal, Normal thought process present, cooperative, activity/motor behavior normal, denies homicidal ideation and denies suicidal ideation THOUGHT PROCESS: Normal thought process present Skin: COMMON NORMALS: no rashes or lesions noted, no wounds and turgor normal GENERAL SKIN EXAM: no rashes or lesions noted and turgor normal Course Vital Signs: Vital signs: Vital Signs Temperature 97.4 F L 12/12/22 12:30 Pulse Rate 87 12/12/22 12:30 Respiratory Rate 20 H 12/12/22 12:30 Blood Pressure 140/74 12/12/22 12:30 Pulse Oximetry 95 12/12/22 12:30 Oxygen Delivery Me thod 12/12/22 12:30 MDM - Extremity (Nontraumatic) Medical Decision Making Patient was evaluated in the emergency department for complaints of initially foot pain. Had had a biopsy done 2 weeks ago and has slowly been healing. She seems to some increased edema and erythema to the surgical biopsy site on the left medial surface of the left foot compared to the right. 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 She has developed new symptoms that are more bothersome to her. Fever, chills, headache, nausea, vomiting. She reports cough that is nonproductive and feeling of congestion. I have obtained a chest x-ray, CBC, CMP and started on IV. She is getting 500 cc of normal saline, Benadryl, Toradol, Zofran. Laboratory studies do reveal a leukocytosis but this is chronic for her with her psoriatic arthritis. Remainder of her labs are pretty unremarkable. There is no evidence of a pneumonia on the chest x-ray. We did obtain an XR abdominal series which was positive for bowel gas suggestive of enteritis. Based on her clinical presentation with nausea vomiting and chills along with tenderness in the left upper and lower quadrant is likely that she will develop diarrhea at some point. I have advised her to use good hand hygiene at home. I am giving her prescription of Zofran. Patient is to return to the emergency department if new concerning or worsening symptoms persist. questions sought and answered Lab Data 12/12/22 13:08 12/12/22 13:08 Radiology Impressions Chest X-Ray 12/12/22 12:55 IMPRESSION: No acute findings. Abdomen X-Ray 12/12/22 14:37 IMPRESSION: There are air-filled nondilated small bowel loops. This can be seen with a nonspecific enteritis. Laboratory Results WBC 17.1 10^3/uL (4.0-10.0) H 12/12/22 13:08 RBC 4.77 10^6/uL (4.1-5.3) 12/12/22 13:08 Hgb 14.5 g/dL (11.5-15.3) 12/12/22 13:08 Hct 44.1 % (37.0-47.0) 12/12/22 13:08 MCV 92.5 fl (81-99) 12/12/22 13:08 MCH 30.4 pg (28.0-34.0) 12/12/22 13:08 MCHC 32.9 g/dL (30.0-36.0) 12/12/22 13:08 RDW 12.5 % (12.1-15.1) 12/12/22 13:08 Plt Count 363 10^3/cmm (130-400) 12/12/22 13:08 MPV 9.3 fL (7.4-10.4) 12/12/22 13:08 Neut % (Auto) 67.6 % 12/12/22 13:08 Lymph % (Auto) 23.5 % 12/12/22 13:08 Nye % (Auto) 5.8 % 12/12/22 13:08 Eos % (Auto) 1.8 % 12/12/22 13:08 Baso % (Auto) 0.9 % 12/12/22 13:08 Neut # (Auto) 11.58 10^3/uL (1.8-7.7) H 12/12/22 13:08 Lymph # (Auto) 4.0 10^3/uL (0.8-4.8) 12/12/22 13:08 Nye # (Auto) 1.0 10^3/uL (0.2-0.9) H 12/12/22 13:08 Eos # (Auto) 0.3 10^3/uL (0.0-0.8) 12/12/22 13:08 Baso # (Auto) 0.2 10^3/uL (0.0-0.1) H 12/12/22 13:08 Nucleated RBC % (auto) 0 % 12/12/22 13:08 Nucleated RBCs # 0.0 /100WBC 12/12/22 13:08 Sodium 133 mmol/L (136-145) L 12/12/22 13:08 Potassium 4.1 mmol/L (3.5-5.1) 12/12/22 13:08 Chloride 98 mmol/L (98-107) 12/12/22 13:08 Carbon Dioxide 23 mmol/L (22-29) 12/12/22 13:08 Anion Gap 16.1 (5-19) 12/12/22 13:08 BUN 7 mg/dL (6-20) 12/12/22 13:08 Creatinine 0.6 mg/dL (0.5-0.9) 12/12/22 13:08 GFR Calculation 110.7 mL/min (90-130) 12/12/22 13:08 Glucose 90 mg/dL (65-115) 12/12/22 13:08 Calculated Osmolality 274 mOsm/kg (285-295) L 12/12/22 13:08 Calcium 9.5 mg/dL (8.5-10.5) 12/12/22 13:08 Urine Color Straw (Yellow) 12/12/22 12:58 Urine Appearance Clear (CLEAR) 12/12/22 12:58 Urine pH 5 (5-7) 12/12/22 12:58 Ur Specific [place] 1.005 (1.005-1.030) 12/12/22 12:58 Urine Protein Neg (Negative) 12/12/22 12:58 Urine Glucose (UA) Norm (Normal) 12/12/22 12:58 Urine Ketones Negative (Negative) 12/12/22 12:58 Urine Blood Neg (Negative) 12/12/22 12:58 Urine Nitrate Negative (Negative) 12/12/22 12:58 Urine Bilirubin Neg (Negative) 12/12/22 12:58 Urine Urobilinogen Norm mg/dL (Negative) 12/12/22 12:58 Ur Leukocyte Esterase Negative (Negative) 12/12/22 12:58 Discharge Plan Discharge Patient Disposition: Home Clinical Impression: Gastroenteritis Condition: Stable Prescriptions: New ondansetron 4 mg tablet,disintegrating 4 mg PO Q8H PRN (Reason: nausea and vomiting) Qty: 20 0RF No Action epinephrine [EpiPen 2-Pool] 0.3 mg/0.3 mL auto-injector 0.3 mg IM Q10M PRN (Reason: anaphylaxis) Qty: 2 0RF Rx Instructions: Fill 340B hydrocodone-acetaminophen 5-325 mg tablet 1 tab PO Q6H PRN (Reason: pain) 30 Days Qty: 60 0RF hydrocodone-acetaminophen 5-325 mg tablet 1 tab PO Q6H PRN (Reason: pain) 30 Days Qty: 60 0RF Xeljanz 5 mg tablet 5 mg PO DAILY Qty: 60 3RF clobetasol 0.05 % ointment 1 applic topical BID 14 Days Qty: 60 0RF Rx Instructions: Do not use in folds or on face. calcipotriene 0.005 % ointment 1 applic topical BID Qty: 60 0RF Rx Instructions: rub in gently and completely May use with clobetasol ointment. Duobrii 0.01-0.045 % lotion 1 applic topical DAILY Qty: 100 0RF Rx Instructions: Apply to both feet. Daily. bupivacaine (PF) 0.25 % (2.5 mg/mL) solution 2 ml Infiltration ONCE Qty: 1 0RF albuterol sulfate [Ventolin HFA] 90 mcg/actuation HFA aerosol inhaler 2 puff inhalation Q6H PRN (Reason: shortness of breath or wheezing) Qty: 8.5 2RF Discharge Orders: Discharge ED (Routine); Ordered 12/12/22 Ordered By: Jayson Adrian Referrals: Shai Samson MD [Primary Care Provider] - Discharge Diet: Advance as tolerated Discharge Activity: Resume usual activity Patient Instructions: Gastroenteritis (ED), Acute Nausea and Vomiting (ED), Pain Management Activity Restrictions/Additional Instructions: These return to the emergency department for new concerning or worsening symptoms Please take your Zofran and other prescriptions as perscribed Coding Level of Care Code ED Highway Research Engineer for Lis Giraldo
[2022-12-12] MEDS: ondansetron 2 mg/ML SDV 2 mL 4 MG IVP (13:07)
[2022-12-12] MEDS: diphenhydrAMINE 50 mg/mL SDV 1mL IVP (13:07)
[2022-12-12] MEDS: sodium chloride 0.9% 500 ML IV (13:07)
[2022-12-12] MEDS: ketorolac 30 mg/mL INJ IVP (13:07)
[2022-12-12 13:16] LABS: Add Urine Microscopic? NO; Charge for UA Resulting for Rev
[2022-12-12 13:20] LABS: Basophils # 0.2 10^3/uL (0.0-0.1); Basophils % 0.9 %; Eosinophils # 0.3 10^3/uL (0.0-0.8); Eosinophils % 1.8 %; Hematocrit 44.1 % (37.0-47.0); Hemoglobin 14.5 g/dL (11.5-15.3); Lymphocytes % 23.5 %; Mean Corpuscular HGB Conc 32.9 g/dL (30.0-36.0); Mean Corpuscular Hemoglobin 30.4 pg (28.0-34.0); Mean Corpuscular Volume 92.5 fl (81-99); Mean Platelet Volume 9.3 fL (7.4-10.4); Monocytes % 5.8 %; Neutrophils # 11.58 10^3/uL (1.8-7.7); Neutrophils % 67.6 %; Nucleated Red Blood Cells % 0 %; Platelet Count 363 10^3/cmm (130-400); Red Blood Count 4.77 10^6/uL (4.1-5.3); Red Cell Distribution Width 12.5 % (12.1-15.1); White Blood Count 17.1 10^3/uL (4.0-10.0)
[2022-12-12 13:24] LABS: Bilirubin Urine Neg (Negative); Blood Urine Neg (Negative); Glucose Urine UA Norm (Normal); Ketones Urine Negative (Negative); Leukocyte Esterase Urine Negative (Negative); Nitrate Urine Negative (Negative); Protein Urine Neg (Negative); Specific Gravity, Urine 1.005 (1.005-1.030); Urine Appearance Clear (CLEAR); Urine Color Straw (Yellow); Urobilinogen Urine Norm (Negative); pH Urine 5 (5-7)
[2022-12-12 13:45] LABS: Anion Gap 16.1 (5-19); Blood Urea Nitrogen 7 mg/dL (6-20); Calcium 9.5 mg/dL (8.5-10.5); Carbon Dioxide 23 mmol/L (22-29); Chloride 98 mmol/L (98-107); Glomerular Filtration Rate 110.7 mL/min (90-130); Glucose 90 mg/dL (65-115); Osmolality Calculated 274 mOsm/kg (285-295); Potassium 4.1 mmol/L (3.5-5.1); Sodium 133 mmol/L (136-145)
--- NOTE | 2022-12-12 14:37 | XRR_ITS ---
PROCEDURE INFORMATION: Exam: XR Abdomen Exam date and time: 12/12/2022 3:06 PM Age: 42 years old Clinical indication: Other: Post biopsy foot pain; Prior surgery; Surgery date: 6+ months; Surgery type: Ovarian cyst removed; Additional info: Abd pain TECHNIQUE: Imaging protocol: Radiologic exam of the abdomen. Views: 2 Views. Upright and supine views. COMPARISON: CT abdomen pelvis w con* [id number] 05/22/2020 2:59 PM FINDINGS: Gastrointestinal tract: There are air-filled nondilated small bowel loops in the abdomen. No dilated loops of bowel are seen. Air and stool is present throughout the colon and in the rectal vault. Intraperitoneal space: Normal. No free air. Bones/joints: Unremarkable for age. XR/XR abdomen min 2V [id number] IMPRESSION: There are air-filled nondilated small bowel loops. This can be seen with a nonspecific enteritis.
[2022-12-12 15:43] VITALS: BP 140/74; PULSE 87; RESP 20; O2SAT 95
== END 2022-12-12 15:44 | disposition home or self-care (01) ==
PROVIDERS: Emergency Provider Nurse Practitioner; PCP Internal Medicine Rheumatology
DX: L76.82 Other postprocedural complications of skin and subcutaneous tissue (principal); Y83.9 Surgical procedure, unspecified as the cause of abnormal reaction of the patient, or of later complication, without mention of misadventure at the time of the procedure; K52.9 Noninfective gastroenteritis and colitis, unspecified
CPT/HCPCS: 71045; 74019; 80048; 81003; 85025; 96361; 96374; 96375; 99285; J1200; J1885; J2405; J7040

== ENCOUNTER → 2022-12-15 09:55 | Outpatient (BNVA) | payer BC, MEDICAID, SELFPAY | PROVIDERS: PCP Internal Medicine Rheumatology; Visit Provider Nurse Practitioner Family | DX: D72.829 Elevated white blood cell count, unspecified (principal); R68.89 Other general symptoms and signs; Z11.52 Encounter for screening for COVID-19; K52.9 Noninfective gastroenteritis and colitis, unspecified; G43.909 Migraine, unspecified, not intractable, without status migrainosus | CPT/HCPCS: 85025; 87400; 87426 ==

== ENCOUNTER 2023-01-28 09:14 | Outpatient (CLI) | payer BC, MEDICAID, SELFPAY ==
--- NOTE | 2023-01-28 10:00 | NM_ITS ---
WS: [id number] NUCLEAR MEDICINE HIDA SCAN CLINICAL INFORMATION: abdominal pain TECHNIQUE: Following intravenous administration of 7.4 mCi of technetium 99m mebrofenin, images of th e abdomen were obtained over the course of 60 minutes. Next, gallbladder ejection fraction was determ ined by obtaining preprandial and one-hour postprandial images of the gallbladder following oral toby stion of Ensure. COMPARISON: None. FINDINGS: Normal hepatic uptake at 5 minutes. Normal hepatic excretion. Normal common bile duct and small bowel activity. Gallbladder is visualized by 90 minutes. No evidence of acute cholecystitis. Gallbladder ejection fraction 60% within normal limits. NM/NM hepatobiliary w phar* [id number] IMPRESSION: 1. No evidence of acute or chronic cholecystitis. 2. Gallbladder ejection fraction 60% within normal limits.
== END 2023-01-28 09:15 | disposition home or self-care (01) ==
LOC: RAD 09:15
PROVIDERS: PCP Nurse Practitioner Family; Visit Provider Surgery
DX: R10.9 Unspecified abdominal pain (principal)
CPT/HCPCS: 78227; A9537

== ENCOUNTER 2023-03-15 11:56 | Outpatient (CLI) | payer BC, MEDICAID, SELFPAY ==
[2023-03-15 13:16] LABS: Basophils # 0.1 10^3/uL (0.0-0.1); Basophils % 0.9 %; Eosinophils # 0.3 10^3/uL (0.0-0.8); Eosinophils % 2.6 %; Hematocrit 42.8 % (37.0-47.0); Hemoglobin 13.9 g/dL (11.5-15.3); Lymphocytes # 3.3 10^3/uL (0.8-4.8); Lymphocytes % 25.9 %; Mean Corpuscular HGB Conc 32.5 g/dL (30.0-36.0); Mean Corpuscular Volume 95.3 fl (81-99); Mean Platelet Volume 9.7 fL (7.4-10.4); Monocytes # 1.1 10^3/uL (0.2-0.9); Monocytes % 8.4 %; Neutrophils # 7.82 10^3/uL (1.8-7.7); Neutrophils % 61.9 %; Nucleated Red Blood Cells % 0 %; Platelet Count 280 10^3/cmm (130-400); Red Blood Count 4.49 10^6/uL (4.1-5.3); Red Cell Distribution Width 12.9 % (12.1-15.1); White Blood Count 12.6 10^3/uL (4.0-10.0)
[2023-03-15 13:34] LABS: Alanine Aminotransferase 16 U/L (0-33); Alkaline Phosphatase 80 U/L (35-105); Aspartate Amino Transferase 12 U/L (0-32); Globulin 2.9 g/dL (1.3-4.6); Glomerular Filtration Rate 136.6 mL/min (90-130); Total Bilirubin 0.2 mg/dL (0.15-1.2); Total Protein 6.9 g/dL (6.6-8.7)
== END 2023-03-15 11:57 | disposition home or self-care (01) ==
PROVIDERS: PCP Nurse Practitioner Family; Visit Provider Internal Medicine Rheumatology
DX: L40.50 Arthropathic psoriasis, unspecified (principal); Z79.899 Other long term (current) drug therapy; M51.37 Other intervertebral disc degeneration, lumbosacral region; M43.07 Spondylolysis, lumbosacral region
CPT/HCPCS: 36415; 72110; 80076; 82565; 85025; 86140

== ENCOUNTER → 2023-04-12 09:38 | Outpatient (BNVA) | payer BC, MEDICAID, SELFPAY | PROVIDERS: PCP Nurse Practitioner Family; Visit Provider Anesthesiology Pain Medicine | DX: M54.12 Radiculopathy, cervical region (principal) | CPT/HCPCS: 72050 ==

== ENCOUNTER → 2023-05-10 13:17 | Outpatient (BNVA) | payer BC, MEDICAID, SELFPAY | PROVIDERS: PCP Nurse Practitioner Family; Visit Provider Nurse Practitioner Family | DX: R53.83 Other fatigue (principal); N92.1 Excessive and frequent menstruation with irregular cycle | CPT/HCPCS: 84439; 84443; 84481; 85025 ==

== ENCOUNTER 2023-07-05 15:43 | Outpatient (CLI) | payer BC, MEDICAID, SELFPAY ==
[2023-07-07 12:38] LABS: Quantiferon Mitogen >10.00 IU/mL; Quantiferon Nil 0.02 IU/mL; Quantiferon Plus TB1 0.01 IU/mL; Quantiferon Plus TB2 0.01 IU/mL; Quantiferon TB Gold NEGATIVE (NEGATIVE)
== END 2023-07-05 15:44 | disposition home or self-care (01) ==
PROVIDERS: PCP Nurse Practitioner Family; Visit Provider Internal Medicine Rheumatology
DX: Z11.1 Encounter for screening for respiratory tuberculosis (principal)
CPT/HCPCS: 36415; 86480

== ENCOUNTER → 2023-08-16 13:53 | Outpatient (BNVA) | payer BC, MEDICAID, SELFPAY | PROVIDERS: PCP Nurse Practitioner Family; Visit Provider Nurse Practitioner Family | DX: R53.83 Other fatigue (principal); R07.9 Chest pain, unspecified; Z79.899 Other long term (current) drug therapy | CPT/HCPCS: 81000 ==

== ENCOUNTER → 2023-09-20 15:23 | Outpatient (BNVA) | payer BC, MEDICAID, SELFPAY | PROVIDERS: PCP Nurse Practitioner Family; Visit Provider Emergency Medicine | DX: Z20.822 Contact with and (suspected) exposure to COVID-19 (principal); G43.011 Migraine without aura, intractable, with status migrainosus; G43.909 Migraine, unspecified, not intractable, without status migrainosus; R11.0 Nausea | CPT/HCPCS: 87426 ==

== ENCOUNTER → 2023-11-18 09:57 | Outpatient (BNVA) | payer BC, MEDICAID, SELFPAY | PROVIDERS: PCP Nurse Practitioner Family; Visit Provider Family Medicine Adult Medicine | DX: R09.81 Nasal congestion (principal); J06.9 Acute upper respiratory infection, unspecified | CPT/HCPCS: 87400 ==

== ENCOUNTER 2023-11-21 10:22 | Outpatient (CLI) | payer BC, MEDICAID, SELFPAY ==
[2023-11-22 14:04] LABS: Measles AB IgG Immune Status <13.50 AU/mL; Mumps Virus AB IgG Immune Stat <9.00 AU/mL; Rubella AB IgG Immune Status 2.03 Index
== END 2023-11-21 10:23 | disposition home or self-care (01) ==
LOC: LAB 10:23
PROVIDERS: PCP Nurse Practitioner Family; Visit Provider Nurse Practitioner Family
DX: Z13.9 Encounter for screening, unspecified (principal)
CPT/HCPCS: 36415; 86735; 86762; 86765

== ENCOUNTER → 2023-11-29 13:57 | Outpatient (BNVA) | payer BC, MEDICAID, SELFPAY | PROVIDERS: PCP Nurse Practitioner Family; Visit Provider Internal Medicine Rheumatology | DX: Z79.899 Other long term (current) drug therapy (principal); L40.50 Arthropathic psoriasis, unspecified; Z71.89 Other specified counseling; L40.3 Pustulosis palmaris et plantaris | CPT/HCPCS: 36415; 80076; 82565; 85025; 86140 ==

== ENCOUNTER 2023-12-06 11:14 | Outpatient (CLI) | payer BC, MEDICAID, SELFPAY | END 2023-12-06 11:15 | disposition home or self-care (01) | LOC: LAB 11:15 | PROVIDERS: PCP Nurse Practitioner Family; Visit Provider Nurse Practitioner Family | DX: Z13.9 Encounter for screening, unspecified (principal) | CPT/HCPCS: 36415; 86787 ==

== ENCOUNTER → 2023-12-27 14:37 | Outpatient (BNVA) | payer BC, MEDICAID, SELFPAY | PROVIDERS: PCP Nurse Practitioner Family; Visit Provider Nurse Practitioner Family | DX: R68.89 Other general symptoms and signs (principal) | CPT/HCPCS: 87400 ==

== ENCOUNTER → 2024-01-02 10:45 | Outpatient (BNVA) | payer BC, MEDICAID, SELFPAY | PROVIDERS: PCP Nurse Practitioner Family; Referring Provider Nurse Practitioner Family; Visit Provider Internal Medicine Pulmonary Disease | DX: R09.82 Postnasal drip (principal); R05.3 Chronic cough; Z91.09 Other allergy status, other than to drugs and biological substances | CPT/HCPCS: 36415; 82785; 86003 ==

== ENCOUNTER 2024-01-20 08:33 | Outpatient (CLI) | payer BC, MEDICAID, SELFPAY ==
--- NOTE | 2024-01-20 08:30 | CT_ITS ---
WS: [id number] CT chest wo con [id number] HISTORY: SOB, Chronic cough TECHNIQUE: Axial imaging performed through the thorax. Coronal and sagittal reformats are submitted. All CT scans at [facility] use at least one of these dose optimization techniques: automated exposure control; mA and/or kV adjustment per patient size (includes targeted exams where dose is mat ched to clinical indication); or iterative reconstruction. CONTRAST: None DLP: 520.36 mGy.cm COMPARISON: None available. Lungs and central airway: Mild hyperinflation. Minimal flattening of the diaphragms. No mass or pulmo nary nodules. No air trapping identified. Pleura: Normal. No pleural effusion. Heart and pericardium: Normal size heart with no pericardial effusion. Mediastinum and juan: No mediastinum or hilar adenopathy. Vessels: Normal size aortic and pulmonary artery. No coronary artery calcifications. Chest wall and lower neck: No soft tissue masses. Upper abdomen: The entire liver is not included but does appear slightly enlarged with changes of hep atic steatosis. The visualized gallbladder is normal. No adrenal mass. Stable lipoma LEFT kidney. Osseous structures: No destructive process. IMPRESSION: 1. Very mild pulmonary hyperexpansion. No mass. 2. No adenopathy. 3. Normal size heart.
== END 2024-01-20 08:34 | disposition home or self-care (01) ==
LOC: RAD 08:34
PROVIDERS: PCP Nurse Practitioner Family; Visit Provider Internal Medicine Pulmonary Disease
DX: R05.3 Chronic cough (principal); B44.81 Allergic bronchopulmonary aspergillosis
CPT/HCPCS: 36415; 71250; 86003

== ENCOUNTER 2024-01-24 07:46 | Outpatient (CLI) | payer BC, MEDICAID, SELFPAY ==
[2024-01-24 08:14] VITALS: PULSE 75; RESP 18; O2SAT 98
[2024-01-24] MEDS: albuterol 2.5 mg/3 mL Neb INHALATION (08:14)
[2024-01-24 08:19] VITALS: PULSE 80
== END 2024-01-24 07:47 | disposition home or self-care (01) ==
PROVIDERS: PCP Nurse Practitioner Family; Visit Provider Internal Medicine Pulmonary Disease
DX: J45.40 Moderate persistent asthma, uncomplicated (principal)
CPT/HCPCS: 94060; 94618; 94726; 94729

== ENCOUNTER 2024-03-15 11:34 | Outpatient (CLI) | payer BC, MEDICAID, SELFPAY ==
[2024-03-15 12:12] VITALS: BMI 31.5
--- NOTE | 2024-03-15 12:12 | ECG_ITS ---
[facility] Test Date: 2024-03-15 Pat Name: Barbara Louis Department: Room: Gender: Female Director Of Respiratory Therapy: Evelin KeenPedrito : 1980 Requested By: Kilo Zuleta Order Number: [id number] Sumit MD: Reji Vu M.D. Interpretive Statements NAME OF STUDY: TREADMILL STRESS TEST INDICATION: Chest Pain PROCEDURE: At the baseline, the patient's blood pressure was 123/70 with a heart rate of 83. The baseline electrocardiogram showed normal sinus rhythm with normal ST-Ts.. The patient exercised for 7 minutes and 32 seconds on a standard Huey protocol. Patient attained a maximum heart rate of 155 beats per minute(87% of the maximum predicted heart rate) with a blood pressure at the peak exercise of 191/94 mm Hg. The EKG at the peak exercise revealed no significant changes. Patient did not have any chest pain or any significant cardiac arrhythmias with the exercise During the recovery phase, there were no new changes. Blood pressure at the end of the recovery phase was 143/72 mm Hg with a heart rate of 99 per minute. CONCLUSION: 1. No significant EKG changes with the treadmill exercise 2. No exercise-induced chest pain or cardiac arrhythmia 3. Fair exercise tolerance, attained a maximum of 10.2 METs Electronically Signed On 03-19-2024 22:39:12 CDT by Reji Vu M.D. [email or web address]
[2024-03-15 12:44] VITALS: BP 143/72; PULSE 99
== END 2024-03-15 11:35 | disposition home or self-care (01) ==
PROVIDERS: PCP Nurse Practitioner Family; Visit Provider Internal Medicine Pulmonary Disease
DX: R06.02 Shortness of breath (principal)
CPT/HCPCS: 93017

== ENCOUNTER → 2024-03-27 13:40 | Outpatient (BNVA) | payer BC, MEDICAID, SELFPAY | PROVIDERS: PCP Nurse Practitioner Family; Visit Provider Internal Medicine Rheumatology | DX: Z79.899 Other long term (current) drug therapy (principal); L40.50 Arthropathic psoriasis, unspecified; Z71.89 Other specified counseling; L40.3 Pustulosis palmaris et plantaris | CPT/HCPCS: 36415; 80076; 82565; 85025; 86140 ==

== ENCOUNTER 2024-05-24 15:10 | Outpatient (CLI) | payer BC, MEDICAID, SELFPAY ==
--- NOTE | 2024-05-24 15:14 | XR_ITS ---
WS: [id number] Left knee, 3 views, 05/24/2024 Clinical Data: M25.562 - Pain in left knee Comparison: Left knee, 07/08/2022 Findings: No fractures or dislocations are seen. There is minimal medial joint compartment narrowing with small spurs of the medial femoral condyle and medial tibial plateau. Normal. The patella is intact. The so ft tissues are unremarkable. XR/XR knee LT 3V* [id number] Impression: Mild osteoarthritis of the left knee. Kellgren-Jose Classification: grade 1 (doubtful): doubtful joint space narr owing and possible osteophytic lipping
[2024-05-24 15:58] LABS: Basophils # 0.1 10^3/uL (0.0-0.1); Eosinophils # 0.4 10^3/uL (0.0-0.8); Eosinophils % 3.1 %; Hematocrit 40.5 % (36-47); Lymphocytes # 4.4 10^3/uL (0.8-4.8); Lymphocytes % 36.4 %; Mean Corpuscular HGB Conc 33.3 g/dL (30-55); Mean Corpuscular Hemoglobin 31.3 pg (27-33); Mean Corpuscular Volume 93.8 fl (85-98); Mean Platelet Volume 9.5 fL (7.4-10.4); Monocytes # 1.1 10^3/uL (0.2-0.9); Monocytes % 8.9 %; Neutrophils # 6.03 10^3/uL (1.8-7.7); Neutrophils % 50.4 %; Nucleated Red Blood Cells % 0 %; Platelet Count 299 10^3/cmm (157-399); Red Blood Count 4.32 10^6/uL (3.85-5.65); Red Cell Distribution Width 12.9 % (12.1-15.1); White Blood Count 11.96 10^3/uL (3.29-11.43)
[2024-05-24 16:49] LABS: Iron 86 ug/dL (37-145); Percent Saturation 33.7 % (20-50); Total Iron Binding Capacity 255 mcg/dl; Unsaturated Iron Binding 169 ug/dL (112-347)
== END 2024-05-24 15:11 | disposition home or self-care (01) ==
LOC: LAB 15:11
PROVIDERS: PCP Nurse Practitioner Family; Visit Provider Nurse Practitioner Family
DX: M25.562 Pain in left knee (principal); D64.9 Anemia, unspecified; R53.83 Other fatigue
CPT/HCPCS: 36415; 73562; 83540; 83550; 85025

== ENCOUNTER → 2024-10-30 12:46 | Outpatient (BNVA) | payer BC, MEDICAID, SELFPAY | PROVIDERS: PCP Nurse Practitioner Family; Visit Provider Registered Nurse Neonatal Intensive Care | DX: R50.9 Fever, unspecified (principal) | CPT/HCPCS: 87400; 87426 ==

== ENCOUNTER → 2024-11-28 10:47 | Outpatient (BNVA) | payer BC, MEDICAID, SELFPAY | PROVIDERS: PCP Nurse Practitioner Family; Visit Provider Nurse Practitioner Family | DX: N23 Unspecified renal colic (principal) | CPT/HCPCS: 81000 ==

== ENCOUNTER → 2024-12-04 14:41 | Outpatient (BNVA) | payer BC, MEDICAID, SELFPAY | PROVIDERS: PCP Nurse Practitioner Family; Visit Provider Internal Medicine Rheumatology | DX: L40.50 Arthropathic psoriasis, unspecified (principal); Z79.899 Other long term (current) drug therapy | CPT/HCPCS: 36415; 80076; 82565; 85025; 85651; 86140 ==

== ENCOUNTER → 2025-03-12 14:53 | Outpatient (BNVA) | payer BC, MEDICAID, SELFPAY | PROVIDERS: PCP Nurse Practitioner Family; Visit Provider Internal Medicine Rheumatology | DX: Z79.899 Other long term (current) drug therapy (principal) | CPT/HCPCS: 36415; 80076; 82565; 85025; 85651; 86140 ==

== ENCOUNTER → 2025-03-28 13:59 | Outpatient (BNVA) | payer BC, MEDICAID, SELFPAY | PROVIDERS: PCP Nurse Practitioner Family; Visit Provider Orthopaedic Surgery | DX: M54.9 Dorsalgia, unspecified (principal) | CPT/HCPCS: 36415; 72110; 83036 ==

== ENCOUNTER 2025-04-15 07:10 | Outpatient (CLI) | payer BC, MEDICAID, SELFPAY ==
--- NOTE | 2025-04-15 07:15 | MR_ITS ---
WS: [id number] MRI LUMBAR SPINE NONCONTRAST TECHNIQUE: Sagittal T1, T2 and STIR imaging. Axial T1 and T2 imaging. CLINICAL INFORMATION: M54.16 - Radiculopathy, lumbar region COMPARISON: 2021 FINDINGS: Mild lumbar curve. Grade 1-2 anterolisthesis L5 on S1 measuring 7 mm similar to previous with chronic spondylolysis.. Disc bulging worse at T12-L1, L1-2, L3-4, and L4-5. T12-L1: LEFT paracentral protrusion. Narrowing of the LEFT subarticular recess. L1-L2: Broad-based central disc protrusion. Impingement LEFT greater than RIGHT subarticular recess. Mild LEFT foraminal narrowing. Mild facet arthropathy. L2-L3: Minimal annular bulging. Mild facet arthropathy. Spinal canal and foramen are patent. L3-L4: Shallow RIGHT paracentral protrusion. Narrowing of the RIGHT subarticular recess. Mild facet arthropathy. Mild LEFT foraminal narrowing. L4-L5: Mild disc bulging. Spinal canal is patent. Small foraminal protrusions with mild bilateral foraminal narrowing. Moderate facet arthropathy. L5-S1: Chronic spondylolysis with grade 1-2 anterolisthesis. Slight contact of the S1 nerve roots. Spinal canal is patent. Mild RIGHT foraminal narrowing. Moderate to advanced facet arthropathy. Visualized pelvic bony structures: Normal. Paravertebral soft tissues: Normal. MR/MR lumbar spine wo con* [id number] IMPRESSION: 1. Mild lumbar curve. Chronic spondylolysis L5-S1 with grade 1-2 anterolisthes is is similar to previous. 2. Slightly progressed disc bulging L1-2 with narrowing of the LEFT subarticul ar recess and mild LEFT foraminal narrowing. 3. LEFT subarticular protrusion T12-L1 with narrowing of the LEFT subarticular recess slightly progressed since previous. 4. Small bilateral foraminal protrusions L4-5 with mild bilateral foraminal na rrowing. 5. Mild RIGHT L5-S1 bony foraminal narrowing. 6. Moderate to advanced facet arthropathy L5-S1.
== END 2025-04-15 07:11 | disposition home or self-care (01) ==
PROVIDERS: PCP Nurse Practitioner Family; Visit Provider Anesthesiology Pain Medicine
DX: M54.16 Radiculopathy, lumbar region (principal); M43.8X6 Other specified deforming dorsopathies, lumbar region; M43.07 Spondylolysis, lumbosacral region; M51.369 Other intervertebral disc degeneration, lumbar region without mention of lumbar back pain or lower extremity pain; M48.061 Spinal stenosis, lumbar region without neurogenic claudication; M51.25 Other intervertebral disc displacement, thoracolumbar region; M51.26 Other intervertebral disc displacement, lumbar region; M48.07 Spinal stenosis, lumbosacral region; M47.897 Other spondylosis, lumbosacral region; M51.35 Other intervertebral disc degeneration, thoracolumbar region; M47.896 Other spondylosis, lumbar region
CPT/HCPCS: 72148

== ENCOUNTER → 2025-06-17 14:13 | Outpatient (BNVA) | payer BC, MEDICAID, SELFPAY | PROVIDERS: PCP Nurse Practitioner Family; Visit Provider Anesthesiology Pain Medicine | DX: M47.812 Spondylosis without myelopathy or radiculopathy, cervical region (principal); M47.813 Spondylosis without myelopathy or radiculopathy, cervicothoracic region; M47.816 Spondylosis without myelopathy or radiculopathy, lumbar region; M47.817 Spondylosis without myelopathy or radiculopathy, lumbosacral region; M47.811 Spondylosis without myelopathy or radiculopathy, occipito-atlanto-axial region; M47.818 Spondylosis without myelopathy or radiculopathy, sacral and sacrococcygeal region; M47.814 Spondylosis without myelopathy or radiculopathy, thoracic region; M47.815 Spondylosis without myelopathy or radiculopathy, thoracolumbar region | CPT/HCPCS: 72040 ==

== ENCOUNTER → 2025-07-02 09:54 | Outpatient (BNVA) | payer BC, MEDICAID, SELFPAY | PROVIDERS: PCP Nurse Practitioner Family; Visit Provider Orthopaedic Surgery | DX: Z01.818 Encounter for other preprocedural examination (principal) | CPT/HCPCS: 36415; 80053; 81001; 85025 ==

== ENCOUNTER 2025-07-15 10:10 | Inpatient (IN) | payer BC, MEDICAID, SELFPAY ==
[2025-07-15] VITALS (16 sets, daily range): BP systolic 95–151; BP diastolic 45–91; PULSE 62–94; RESP 10–18; TEMP 36.2–36.9; O2SAT 93–99; BMI 31.6
--- NOTE | 2025-07-15 | XR_ITS ---
WS: [email or web address] Exam: XR lumbar spine 2-3V* [id number] Date/Time of Exam: 07/15/2025 12:00 AM Reason For Exam: OR PICS DLP: AP and lateral intraoperative images of the lumbar spine are submitted. Images were obtained for intraoperative visualization purposes.
[2025-07-15 06:15] LABS: OR HCG Qualitative Urine Negative (Negative)
--- NOTE | 2025-07-15 06:34 | W.PM.OPSUD ---
Surgery/Procedure H&P Update DATE OF PROCEDURE: July 15, 2025 DATE H&P PERFORMED: 07/02/25 H&P UPDATE INFORMATION: I have reviewed H&P completed within last 30 days, I have examined patient prior to procedure and No changes to prior documentation PREOP DIAGNOSIS: L5-S1 spondylolisthesis PLANNED PROCEDURE: Operation Date: 07/15/25 07:00 Proposed Procedures p Spinal Fusion PSF(Not Applicable) - Mckinley Kyle DO s Posterior Lumbar Interbody Fusion PLIF(Not Applicable) - DO kate Pollard Lumbopelvic Fixation(Not Applicable) - DO kate Pollard Sacroiliac Joint Fusion SI Joint Fusion(Bilateral) - Mckinley Kyle DO
[2025-07-15] MEDS: ceFAZolin 2,000 mg SDV 2000 MG IVP ×2 (07:01→16:48)
--- NOTE | 2025-07-15 07:09 | ANES.PREANE2 ---
Pre-Anesthetic Assessment Height/Weight: Height 1.6 m Weight 81.193 kg Temp Pulse Resp BP Pulse Ox O2 Del Method 97.1 F L 62 18 110/62 95 Room Air 07/15/25 05:53 07/15/25 05:53 07/15/25 05:53 07/15/25 05:53 07/15/25 05:53 07/15/25 05:53 Preop Diagnosis: L5-S1 spondylolisthesis Operation Date: 07/15/25 07:00 Proposed Procedures p Spinal Fusion PSF(Not Applicable) - Mckinley Kyle DO s Posterior Lumbar Interbody Fusion PLIF(Not Applicable) - Mckinley Kyle DO s Lumbopelvic Fixation(Not Applicable) - DO kate Pollard Sacroiliac Joint Fusion SI Joint Fusion(Bilateral) - Mckinley Kyle DO Familial anesthetic complications: none Was Beta Nicole taken within 24 hours: N/A Was Clonidine taken within 24 hours: N/A Last intake: Intake Last Liquid Date 07/14/25 Last Liquid Time 23:00 Last Solid Date 07/14/25 Last Solid Time 23:00 Social No alcohol and No tobacco Exam alert, oriented x 3, clear to auscultation bilaterally and regular rate & rhythm Pulmonary Asthma GI Gastroesophageal Reflux Disease Anesthetic Plan ASA status: 2 Anesthesia: General Risk of > 500 ml blood loss (7ml/kg in children): No Medications/Allergies Home Medications ?Medication ?Instructions ?Recorded ?Confirmed ?Last Taken ?Type budesonide-formoterol HFA 80 2 puff inhalation BID #10.2 grams 02/25/25 07/11/25 07/15/25 04:45 Rx mcg-4.5 mcg/actuation aerosol inhaler (Symbicort) guselkumab 100 mg/mL subcutaneous 100 mg SUBCUT .[id number] #1 mL 03/12/25 07/11/25 07/14/25 15:00 Rx auto-injector (Tremfya) hydroxyzine HCl 25 mg tablet 25 mg PO TID PRN Itching 06/17/25 07/11/25 07/14/25 15:00 History lisinopril 5 mg tablet 5 mg PO QDAY 07/10/25 07/11/25 07/14/25 15:00 History Allergies Allergy/AdvReac Type Severity Reaction Status Date / Time doxycycline Allergy Severe ADR/ALGY-Pa Verified 07/15/25 06:19 lpitations methotrexate Allergy Severe heart Verified 07/15/25 06:19 palpitations, blurred vision to ER metronidazole Allergy Severe breathing Verified 07/15/25 06:19 issues, hives diclofenac Allergy Intermediate ADR-Chest Verified 07/15/25 06:19 Pain latex Allergy Intermediate swelling, Verified 07/15/25 06:19 rash, itching prednisone Allergy Intermediate INCREASES Verified 07/15/25 06:19 INFLAMMATION tramadol Allergy Intermediate itching, Verified 07/15/25 06:19 rash, brain fog gabapentin Allergy Mild ADR-Hyperte Verified 07/15/25 06:19 nsion azithromycin Allergy Unknown unknown Verified 07/15/25 06:19 glutamine Allergy Unknown Unknown Verified 07/15/25 06:19 neomycin Allergy Unknown Unknown Verified 07/15/25 06:19 tofacitinib (From Xeljanz) Allergy Unknown ADR-Abdominal Verified 07/15/25 06:19 Pain upadacitinib (From Rinvoq) Allergy Unknown Unknown Verified 07/15/25 06:19 pramoxine Allergy Unknown Verified 07/15/25 06:19 topiramate (From Topamax) Allergy ADR-Gastrointestinal Verified 07/15/25 06:19 Upset Current Medications Generic Name Dose Route Start Last Admin Trade Name Freq PRN Reason Stop Dose Admin Sodium Chloride 1,000 mls @ 30 mls/hr 07/15/25 06:00 07/15/25 06:12 Sodium Chloride 0.9% IV 07/16/25 05:59 30 mls/hr .Q24H NOY Administration PFSH Anesthesia Medical History (Updated 07/10/25 @ 09:26 by Rosalba Hodges MD) 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 Epicondylitis, lateral (tennis elbow) Tobacco abuse disorder Piriformis syndrome of both sides Asthma Degenerative joint disease (DJD) of lumbar spine Chronic low back pain Psoriatic arthritis Palmoplantar pustular psoriasis High risk medication use Immunization counseling Low back pain Psoriasis Inflammatory arthritis Surgical History History of tubal ligation History of laparoscopy ovarian cyst Family History Other Diabetes Hypertension Rheumatoid arthritis Denies family history of Lupus CAD (coronary artery disease) Chronic kidney disease (CKD) Cancer Stroke Social History Smoking and tobacco/nicotine status: current every day tobacco/nicotine user cigarettes Packs smoked per day: 1 Years cigarettes smoked: 18 [ Other cigarette details: Started at age 25] Alcohol intake: current Alcohol intake frequency: holidays/special occasions only Substance/Drug Use: never Adopted: No Lives independently: Yes Household members: spouse, family and children
[2025-07-15] MEDS: lidocaine-epi 1% 20 mL INJ 10 ML INJECTION (08:20)
[2025-07-15] MEDS: tobramycin 40 mg/mL SDV 2mL 120 MG XX (08:21)
--- NOTE | 2025-07-15 10:20 | P.OP_ITS ---
Operative Report Date of procedure: July 15, 2025 Pre-op diagnosis: L5/S1 spondylolisthesis Post-op diagnosis: same Procedure done: 1. L5/S1 Interbody fusion with posterolateral fusion 2. Interbody cage placed at L5-S1 3. L3 to pelvis fusion 4. L3-S1 posterior spine instrumentation 5. Lumbopelvic instrumentation 6. Open SI joint fusion on the right 7. Open SI joint fusion on the left 8. Use of computer navigation stereotactic for spine 9. Use of allograft Surgeon: Mckinley Kyle DO Estimated blood loss (mL): 250 Procedure: 1. L5/S1 Interbody fusion with posterolateral fusion 2. Interbody cage placed at L5-S1 3. L3 to pelvis fusion 4. L3-S1 posterior spine instrumentation 5. Lumbopelvic instrumentation 6. Open SI joint fusion on the right 7. Open SI joint fusion on the left 8. Use of computer navigation stereotactic for spine 9. Use of allograft Patient brought to the operative suite after undergoing anesthesia was placed in the prone position. All areas impingement well-padded. Patient is prepped and draped in normal sterile fashion. Skin incisions made using the previous skin incision extending slightly above and below. The thoracolumbar fascia was split and subperiosteal dissection was made out to the transverse process of L3 to L5 bilaterally as well as the sacral ala bilaterally. Sacrum and SI joints were dissected out as well. Next attention was brought to placing the fiducial for the C-arm. This is going to be used for the computer navigation. 2 pins were placed into the right iliac crest which were later moved to the end of the case. The fiducial was attached. C-arm was brought in and then spun around the patient. The information from C arm was then later used after is loaded the computer for the placement of pedicle screws. Next attention was brought to placing the pedicle screws. This was done L3 bila terally L4 bilaterally, L5 bilaterally and S1 bilaterally. The computer navigated awl was inserted into the pedicle. Followed by the pedicle feeler. Followed by placement of the screws using the computer navigation. At all these levels. Next attention was placing the iliac screws. This was done using the computer navigated awl. This is placed through the ala across the SI joint into the irlnada ac crest. Then followed by the pedicle feeler. Followed by computer navigated tap. 90 mm 9.5 millimeter pedicle screws were then placed into the iliac crest. This was done bilaterally. Next attention was brought to the open SI joint fusions. This was done by using the computer navigated awl crossing the SI joint. Through direct visualization as well. The pedicle feeler was used to make sure was crossed no breaches. The canal was then filled with bone graft. And then a computer navigated SI joint fusion screws placed across the SI joint. This process was done on both the right and the left side. Laminectomy was then performed L5-S1. The high-speed bur was used to take down the lamina of L5 the facet joints were taken down with a high-speed bur curved curette and Kerrisons were used to take the remaining bone down the ligament flavum was taken down from L5-S1. S1 nerve was traced around the S1 pedicle as the L5 nerve roots were traced out the L5-S1 foramen. The S1 nerve root was then reflected medially on the left side. Discectomy was performed using a knife followed by wander. Wander were used starting at size [address] up to size 7. A size 7 trial was used felt to be good size cage and then a size 7 [place] cage was inserted into the L5-S1 disc space. This was then tamped into good position on the vertebral body which is confirmed under C- arm guidance. Wounds were then irrigated. The kaitlin was then attached from L3, L4, L5, S1 and into the iliac screw completing the lumbopelvic fixation. This was done bilaterally. The L5-S1 spondylolisthesis was reduced. This was done using the reduction tool. This was done bilaterally. The screw caps were then torqued into position. This was done bilaterally. Next attention was brought to decorticating the transverse processes of L3 bilaterally L4 bilaterally L5 bilaterally and sacral ala bilaterally as well as the SI joints. Osteoamp bone graft was then packed into the gutters. And across the SI joint. Vancomycin powder and tobramycin was mixed with calcium sulfate beads packed into the wound was placed deep drain was placed and wound was closed in layered fashion with Vicryl and Monocryl. Sterile dressings were applied patient was transferred to the PACU in stable condition.
--- NOTE | 2025-07-15 11:10 | ANE.PACU2 ---
Inpatient post-anesthesia follow up: Airway intact: Yes Vital signs: Temperature 97.1 F Pulse Rate 82 Respiratory Rate 14 Blood Pressure 140/91 Pulse Oximetry 96 Oxygen Delivery Me thod Room Air Oxygen Flow Rate 8 Fraction of Inspir ed Oxygen Hydration adequate: Yes Nausea and vomiting: No Pain level: 1 Mental status: Baseline
--- NOTE | 2025-07-15 11:30 | PC.NURSE ---
1123 - accepted into room 267 with SkyeRN at side - no distress in patient noted upon this nurse exiting care - BP 137/84 - pulse 88 - 96% temp 97.8
[2025-07-15] MEDS: HYDROcodone-acetaminophen 5-325 mg Tablet PO ×3 (12:33→22:11)
--- NOTE | 2025-07-15 16:44 | PC.NURSE ---
100 mls drained out of this patient's hemovac.
[2025-07-16] VITALS (7 sets, daily range): BP systolic 97–125; BP diastolic 62–72; PULSE 77–88; RESP 16–17; TEMP 36.7–37; O2SAT 95–97
[2025-07-16] MEDS: ceFAZolin 2,000 mg SDV 2000 MG IVP ×2 (00:21→07:50)
[2025-07-16] MEDS: HYDROcodone-acetaminophen 5-325 mg Tablet PO ×2 (05:24→10:48)
--- OUTSIDE RECORDS SUMMARY | 2025-07-16 05:55 | XMS_ITS | Clinical Summary ---
Author Organization [facility] Address [address] [place] [address] Care Team Providers Care Cargo Handler Name Role Phone William White MD Primary Care Provider [phone] Allergies Active Allergy Reactions Criticality Noted Date Comments Egg Other (See Comments) 11/01/2018 Rash as a child Latex Rash Low Rnijt-Lpyvy-Wveeakt-Pra moxine Hives High Tramadol Anaphylaxis High 01/12/2016 Medications albuterol HFA 90 mcg inhalerIndicati ons:Acute bronchitis, unspecified organism Take 2 Puffs by inhalation every 6 hours as needed for Shortness of Breath. 20.1 Gram 1 11/06/19 20 Active Tremfya 100 mg/mL Auto-Injector Inject ONE pen UNDER THE SKIN ON WEEK 0 AND WEEK 4, THEN EVERY EIGHT WEEKS thereafter 11/08/19 25 Active Symbicort 80-4.5 mcg/actuation HFA Aerosol Inhaler Take 2 Puffs by inhalation 2 times daily. 09/27/20 24 Active betamethasone valerate (VALISONE) 0.1 % Cream APPLY 1 APPLICATION TOPICALLY TWICE A DAY NEEDED FOR SKIN IRRITATION 12/05/19 25 Active diclofenac sodium (VOLTAREN) 75 mg Tablet, Delayed Release (E.C.) Take 75 mg by mouth 2 times daily as needed for Pain. 12/05/19 25 Active Narcan 4 mg/actuation [place], Non-Aerosol SPRAY 1 DOSE INTO 1 NOSTRIL EVERY 3 MINUTES NEEDED FOR OPIOID OVERDOSE. ALTERNATE NOSTRILS WITH EACH DOSE UNTIL HELP ARRIVES 12/04/19 25 Active topiramate (TOPAMAX) 50 mg tablet Take 1 Tablet by mouth 2 times daily. 05/20/20 25 Active metFORMIN (GLUCOPHAGE XR) 500 mg Extended Release 24 hour tablet TAKE 2 TABLETS BY MOUTH TWICE DAILY FOR 1 MONTH 03/28/20 25 Active Zepbound 2.5 mg/0.5 mL Pen Injector INJECT 2.5 MG SUBCUTANEOUSLY ONCE EVERY 7 DAYS 04/17/20 25 Active lisinopriL (PRINIVIL) 5 mg tabletIndicatio ns:HTN (hypertension), benign Take 1 Tablet (5 mg) by mouth daily. 100 Tablet 3 06/14/20 25 Active amoxicillin (AMOXIL) 500 mg TabletIndicatio ns:Acute non-recurrent maxillary sinusitis Take 1 Tablet (500 mg) by mouth every 12 hours for 7 days. 14 Tablet 06/14/20 25 025 hydrOXYzine HCL (ATARAX) 25 mg tabletIndicatio ns:Itching Take 1 Tablet (25 mg) by mouth 3 times daily as needed for Itching. 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 Immunosuppression 03/13/2025 Alpha-gal syndrome 03/13/2025 Diverticulitis 09/22/2020 Psoriatic arthritis 09/05/2020 Tobacco use 12/17/2015 GERD (gastroesophageal reflux disease) 8 Exposure to hepatitis C 08/15/2008 Exposure to HIV 08/15/2008 Encounters Date Type Department Care Team Description 07/02/2025 External Device Data [facility] ABSTRACTION Provider, Abstract 06/19/2025 External Device Data [facility] ABSTRACTION Provider, Abstract 06/18/2025 External Device Data [facility] ABSTRACTION Provider, Abstract 06/18/2025 External Device Data [facility] ABSTRACTION Provider, Abstract 06/14/2025 8:20 AM CDT Office Visit [facility] [address] [address] Rakel Connors FNP Acute non-recurrent maxillary sinusitis (Primary Dx); Itching; HTN (hypertension), benign 06/11/2025 External Device Data ST[facility] ABSTRACTION Provider, Abstract 05/21/2025 External Device Data [facility] ABSTRACTION Provider, Abstract 05/21/2025 External Device Data [facility] ABSTRACTION Provider, Abstract 05/21/2025 External Device Data [facility] ABSTRACTION Provider, Abstract 05/19/2025 10:08 AM CDT - 05/19/2025 11:40 AM CDT Emergency [facility] [address] [place] [id number] Demarcus Arevalo MD Intercostal neuralgia (Primary Dx) Discharge Disposition: Home or Self Care 05/19/2025 Travel from Last 3 Months Immunizations Immunization Administration Dates Next Due (M-M-R II/PRIORIX)(12 MO UP) MEASLES, MUMPS AND RUBELLA VIRUS VACCINE, 0.5 ML IM/SUBCUT 05/24/1984 Diptheria, Tetanus Toxoids, And Whole Cell Pertussis Vaccine (DTP), for intramuscular use 11/11/1983,05/24/1983,1982 Dt Dtp Dtap Vaccine 11/11/1983,05/24/1983,1982 Hepatitis B Vaccine 02/09/1999,08/11/1998,1997 Hepatitis B Vaccine, Unspeci fied Formulation 02/09/1999,08/11/1998,07/11/1998 IPV/OPV 11/11/1983,05/24/1983,1982 Social History Tobacco Use Types Packs/Day Years Used Date Smoking Tobacco: Every Day Cigarettes Last attempted to quit: 09/01/2020 Smokeless Tobacco: Never Tobacco Cessation:Ready to Q uit: Not Asked; Counseling Given: Not Answered Alcohol Use Standard Drinks/Week Comments No 0 (1 standard drink = 0.6 oz pur e alcohol) Feeling Safe Answer Date Recorded Are you in a relationship wi th someone who hurts you emotionally and/or physically? No 05/19/2025 Comments No Sex and Gender Information Value Date Recorded Sex Assigned at Not on file Legal Sex Female 8:45 AM GALLERY MANAGER Gender Identity Not on file Sexual Orientation Not on file Last Filed Vital Signs Vital Sign Reading Time Taken Comments Blood Pressure 154/84 06/14/2025 8:13 AM CDT Pulse 80 06/14/2025 8:07 AM CDT Temperature 36.9 C (98.4 F) 06/14/2025 8:07 AM CDT Respiratory Rate 16 06/14/2025 8:07 AM CDT Oxygen Saturation 97% 06/14/2025 8:07 AM CDT Inhaled Oxygen Concentration - - Weight 82.6 kg (182 lb) 06/14/2025 8:07 AM CDT Height 160 cm (5' 3 ) 06/14/2025 8:07 AM CDT Body Mass Index 32.24 06/14/2025 8:07 AM CDT Plan of Treatment Health Maintenance Due Date Last Done Comments Pre-Diabetes and Diabetes Screening 1982 DTAP/TDAP/TD VACCINES (4 - Tdap) 2001 11/11/1983, 11/11/1983, 05/24/1983, Additional history exists HPV VACCINES (1 - 3-dose SCD M series) 2009 Preventative Visit-Managed Medicaid 08/29/2019 08/28/2018 PAP SMEAR 08/28/2021 08/28/2018, 02/2018, 08/28/2018, Additional history exists BREAST CANCER SCREENING 2022 CERVICAL CANCER SCREENING 08/28/2023 HPV/Cotest (21-29) 08/28/2023 08/28/2018, 1 10/28/2017, 07/02/2016 HPV/Cotest (30-65) 08/28/2023 08/28/2018, 1 10/28/2017, 07/02/2016 INFLUENZA VACCINE (#1) 2025 2, 11/13/2019, 08/28/2018 HEPATITIS B VACCINES Completed 02/09/1999, 02/09/1999, 08/11/1998, Additional history exists Procedures Procedure Name Priority Date/Time Associated Diagnosis Comments EKG 12-LEAD Stat 05/19/2025 11:21 AM CDT XR CHEST PA OR AP 1 VW Stat 11:00 AM CDT DIFFERENTIAL, MANUAL Stat 05/19/2025 10:14 AM CDT TROPONIN BASELINE, 5TH GEN Stat 05/19/2025 10:14 AM CDT LIPASE Stat 05/19/2025 10:14 AM CDT LACTIC ACID Stat 05/19/2025 10:14 AM CDT MAGNESIUM LEVEL Stat 05/19/2025 10:14 AM CDT C-REACTIVE PROTEIN Stat 05/19/2025 10 :14 AM CDT BRAIN NATRIURETIC PEPTIDE, BNP OR PROBNP Stat 05/19/2025 10:14 AM CDT COMPREHENSIVE METABOLIC PANEL Stat 05/19/2025 10:14 AM CDT D-DIMER Stat 05/19/2025 10:14 AM CDT SEDIMENTATION RATE Stat 05/19/2025 10 :14 AM CDT PTT Stat 05/19/2025 10:14 AM CDT PROTIME-INR Stat 05/19/2025 10:14 AM CDT CBC WITH DIFFERENTIAL Stat 05/19/2025 10:14 AM CDT CERV/VAG CYTO SCREEN PAP W/HPV Routine 08/28/2018 10:00 AM GALLERY MANAGER CERV/VAG CYTO SCREEN PAP W/O HPV Routine 08/28/2018 10:00 AM GALLERY MANAGER from Last 3 Months or Most Recently Relevant to Health Maintenance Results * EKG 12-LEAD (05/19/2025 11:21 AM CDT) Narrative Demarcus Arevalo MD - 05/19/2025 11:21 AM CDT Demarcus Arevalo MD 05/23/2025 1:16 PM EKG 12-LEAD Date/Time: 05/19/2025 11:21 AM Performed by: Deamrcus Arevalo MD Authorized by: Demarcus Arevalo MD ECG interpreted by ED Physician in the absence of a dispatcher bus and trolley: yes Rate: ECG rate: 82 ECG rate assessment: age appropriate Rhythm: Rhythm Origin: sinus [place]: QRS axis: Normal Intervals: normal QRSTT: QRSTT changes: No R wave transition: Good us Demarcus Arevalo MD ECG ORDERABLES Final Result * XR CHEST PA OR AP 1 VW (05/19/2025 11:00 AM CDT) Anatomical Region Laterality Modality Chest Computed Radiogr aphy 05/19/2025 11:0 0 AM CDT Impressions 05/19/2025 11:04 AM CDT IMPRESSION: Unremarkable chest x-ray. Narrative 05/19/2025 11:04 AM CDT Exam: Radiographs: XR CHEST PA OR AP 1 VW Indication: Chest pain Comparison: Plain films dated 07/09/2024 Procedure Note Juan Manuel Toscano MD - 05/19/2025 Exam: Radiographs: XR CHEST PA OR AP 1 VW Indication: Chest pain Comparison: Plain films dated 07/09/2024 IMPRESSION: Unremarkable chest x-ray. us Demarcus Arevalo MD DIAGNOSTIC IMAGING ORDERABLES F inal Result * TROPONIN BASELINE, 5TH GEN (05/19/2025 10:14 AM CDT) TROPONIN T, BASELINE 5TH GEN <6 <=10 ng/L 05/19/2025 10:41 AM CDT [facility] Blood Venipuncture / Unknown 05/19/2025 10:14 AM CDT 05/19/2025 10:18 AM CDT Narrative [facility] - 05/19/2025 10:41 AM CDT Troponin Undetectable us Demarcus Arevalo MD CHEMISTRY ORDERABLES Final Resu lt [facility] CLIA # [id number] [address] [place] [address] * (ABNORMAL) MANUAL DIFFERENTIAL (05/19/2025 10:14 AM CDT) SEGMENTED NEUTROPHILS 62 45 - 70 % 05/19/2025 10:40 AM [facility] LYMPHOCYTES RELATIVE 31 20 - 45 % 05/19/2025 10:40 AM [facility] ATYPICAL LYMPHOCYTES RELATIVE 3(H) <=0 % 05/19/2025 10:40 AM [facility] MONOCYTES RELATIVE 2 2 - 8 % 05/19/2025 10:40 AM [facility] EOSINOPHILS RELATIVE 1 0 - 5 % 05/19/2025 10:40 AM [facility] BASOPHILS RELATIVE 1 0 - 2 % 05/19/2025 10:40 AM [facility] NEUTROPHILS ABSOLUTE COUNT 10.11(H) 1.78 - 5.38 K/uL 05/19/2025 10:40 AM [facility] LYMPHOCYTES ABSOLUTE 5.05(H) 1.20 - 4.00 K/uL 05/19/2025 10:40 AM [facility] MONOCYTES ABSOLUTE 0.33 0.30 - 0.82 K/uL 05/19/2025 10:40 AM [facility] EOSINOPHILS ABSOLUTE 0.16 0.04 - 0.54 K/uL 05/19/2025 10:40 AM [facility] BASOPHILS ABSOLUTE 0.16(H) 0.01 - 0.08 K/uL 05/19/2025 10:40 AM [facility] TOTAL CELLS COUNTED IN DIFF 100 05/19/2025 10:40 AM [facility] PLATELET EST. Adequate 05/19/2025 10:40 AM [facility] RBC MORPHOLOGY Normal 05/19/2025 10:40 AM [facility] Blood Venipuncture / Unknown 05/19/2025 10:14 AM CDT 05/19/2025 10:18 AM T us Demarcus Arevalo MD HEMATOLOGY ORDERABLES COM Final Result [facility] CLIA # [id number] [address] [place] [id number] * LACTIC ACID (05/19/2025 10:14 AM CDT) LACTIC ACID 1.3 <=2.0 mmol/L 05/19/2025 10:41 AM [facility] Blood BLOOD SPECIMEN / Unknown Venipuncture / Unknown 05/19/2025 10:14 AM CDT 05/19/2025 10:18 AM CDT us Demarcus Arevalo MD CHEMISTRY ORDERABLES Final Resu lt [facility] CLIA # [id number] [address] [place] [address] * (ABNORMAL) CBC WITH DIFFERENTIAL (05/19/2025 10:14 AM CDT) WBC 16.3(H) 4.0 - 10.0 K/uL 05/19/2025 10:40 AM [facility] RBC 4.61 3.93 - 5.22 M/uL 05/19/2025 10:40 AM [facility] HEMOGLOBIN 14.3 11.2 - 15.7 g/dL 05/19/2025 10:40 AM [facility] HEMATOCRIT 42.1 34.1 - 44.9 % 05/19/2025 10:40 AM [facility] MCV 91.3 79.4 - 94.8 fL 05/19/2025 10:40 AM [facility] MCH 31.0 25.6 - 32.2 pg 05/19/2025 10:40 AM [facility] MCHC 34.0 32.2 - 35.5 g/dL 05/19/2025 10:40 AM [facility] RDW 13.1 11.0 - 14.5 % 05/19/2025 10:40 AM [facility] RDW-STDEV 43.4 36.9 - 56.9 fL 05/19/2025 10:40 AM [facility] PLATELETS 370(H) 163 - 337 K/uL 05/19/2025 10:40 AM CDT [facility] MPV 9.1(L) 10.0 - 14.8 fL 05/19/2025 10:40 AM CDT [facility] Blood Venipuncture / Unknown 05/19/2025 10:14 AM CDT 05/19/2025 10:18 AM CDT us Demarcus Arevalo MD HEMATOLOGY ORDERABLES Final Res ult Performing Organization Address City/[facility]/ZIP Co de Phone Number [facility] CLIA # [id number] [address] [place] [address] * PTT (05/19/2025 10:14 AM CDT) PTT 27.4 25.1 - 35.4 seconds 05/19/2025 10:40 AM CDT [facility] Blood Venipuncture / Unknown 05/19/2025 10:14 AM CDT 05/19/2025 10:18 AM CDT us Demarcus Arevalo MD HEMATOLOGY ORDERABLES Final Res ult Performing Organization Address [facility] Co de Phone Number [id number] [address] [place] [address] * SEDIMENTATION RATE (05/19/2025 10:14 AM CDT) ESR (SEDIMENTATION RATE) 12 0 - 20 mm/Hr 05/19/2025 10:33 AM CDT [facility] Blood Venipuncture / Unknown 05/19/2025 10:14 AM CDT 05/19/2025 10:18 AM CDT Narrative [facility] - 05/19/2025 10:33 AM CDT Tube Lot: #[id number] Exp Date: 10/23/2026 QC1 LOT [id number] EXP.10/28/2025 QC2 LOT [id number] EXP.10/28/2025 Demarcus Arevalo MD HEMATOLOGY ORDERABLES Final Res ult Performing Organization Address City/[facility]/ZIP Co de Phone Number [facility] CLIA # [id number] [address] [place] [address] * PROTIME-INR (05/19/2025 10:14 AM CDT) PROTIME 12.5 12.1 - 14.3 Seconds 05/19/2025 10:40 AM CDT [facility] INR 0.9 0.9 - 1.1 05/19/2025 10:40 AM CDT [facility] Blood Venipuncture / Unknown 05/19/2025 10:14 AM CDT 05/19/2025 10:18 AM CDT Demarcus Arevalo MD HEMATOLOGY ORDERABLES Final Res ult Performing Organization Address City/[facility]/ZIP Co de Phone Number [facility] CLIA # [id number] [address] [place] [address] * D-DIMER (05/19/2025 10:14 AM CDT) D-DIMER QUANT 0.17 <0.50 ug/mL FEU 05/19/2025 10:40 AM CDT [facility] Blood Venipuncture / Unknown 05/19/2025 10:14 AM CDT 05/19/2025 10:18 AM CDT Narrative [facility] - 05/19/2025 10:40 AM CDT D-Dimer assay cutoff value for exclusion of DVT and/or PE is <0.50 ug/mL FEU. us Demarcus Arevalo MD HEMATOLOGY ORDERABLES Final Res ult Performing Organization Address City/[facility]/ZIP Co de Phone Number [facility] CLIA # [id number] [address] [place] [address] * (ABNORMAL) C-REACTIVE PROTEIN (05/19/2025 10:14 AM CDT) CRP 7.2(H) <5.0 mg/L 05/19/2025 10:40 AM CDT [facility] Blood Venipuncture / Unknown 05/19/2025 10:14 AM CDT 05/19/2025 10:18 AM CDT us Demarcus Arevalo MD CHEMISTRY ORDERABLES Final Resu lt Performing Organization Address [facility] Phone Number [facility] CLIA # [id number] [address] [place] [address] * BRAIN NATRIURETIC PEPTIDE, BNP OR PROBNP (05/19/2025 10:14 AM CDT) PROBNP, N TERMINAL 60 0 - 125 pg/mL 05/19/2025 10:40 AM CDT [facility] Comment: INTERPRETIVE COMMENT based on diagnosis: Diagnostic NT pro-BNP cutoffs for Heart Failure in the absence of renal failure is suggested for the following ranges <75 years: <125 pg/mL >=75 years: <450 pg/mL Exclusionary rule out cut-point for Acute Decompensated Heart Failure(ADHF) All ages: <300 pg/mL Diagnostic NT pro-BNP cutoffs for Acute Decompensated Heart Failure(ADHF) in the absence of renal failure is suggested for the following ages <50 years: > 450 pg/mL 50-75 years: > 900 pg/mL >75 years: >1800 pg/mL Blood Venipuncture / Unknown 05/19/2025 10:14 AM CDT 05/19/2025 10:18 AM CDT us Demarcus Arevalo MD CHEMISTRY ORDERABLES Final Resu lt Performing Organization Address [facility] Co de Phone Number [facility] CLIA # [id number] [address] [place] [address] * MAGNESIUM LEVEL (05/19/2025 10:14 AM CDT) MAGNESIUM 1.9 1.6 - 2.6 mg/dL 05/19/2025 10:40 AM CDT [facility] Blood Venipuncture / Unknown 05/19/2025 10:14 AM CDT 05/19/2025 10:18 AM CDT us Demarcus Arevalo MD CHEMISTRY ORDERABLES Final Resu lt Performing Organization Address City/[facility]/ZIP Co de Phone Number [facility] CLIA # [id number] [address] [place] [address] * LIPASE (05/19/2025 10:14 AM CDT) LIPASE 31 13 - 60 U/L 05/19/2025 10:40 AM CDT [facility] Blood Venipuncture / Unknown 05/19/2025 10:14 AM CDT 05/19/2025 10:18 AM CDT us Demarcus Arevalo MD CHEMISTRY ORDERABLES Final Resu lt Performing Organization Address City/[facility]/ZIP Co de Phone Number [facility] CLIA # [id number] [address] [place] [address] * (ABNORMAL) COMPREHENSIVE METABOLIC PANEL (05/19/2025 10:14 AM CDT) SODIUM 138 136 - 145 mmol/L 05/19/2025 10:40 AM CDT [facility] POTASSIUM 3.9 3.5 - 5.1 mmol/L 05/19/2025 10:40 AM CDT [facility] CHLORIDE 102 98 - 107 mmol/L 05/19/2025 10:40 AM CDT [facility] CO2 26 22 - 29 mmol/L 05/19/2025 10:40 AM CDT [facility] CALCIUM 9.6 8.6 - 10.0 mg/dL 05/19/2025 10:40 AM [facility] BUN 8 6 - 20 mg/dL 05/19/2025 10:40 AM [facility] CREATININE 0.61 0.51 - 0.95 mg/dL 05/19/2025 10:40 AM [facility] GLUCOSE 100(H) 74 - 99 mg/dL 05/19/2025 10:40 AM [facility] TOTAL PROTEIN 7.2 6.6 - 8.7 g/dL 05/19/2025 10:40 AM [facility] ALBUMIN 4.2 3.5 - 5.2 g/dL 05/19/2025 10:40 AM [facility] BILIRUBIN TOTAL 0.2 0.0 - 1.2 mg/dL 05/19/2025 10:40 AM [facility] ALKALINE PHOSPHATASE 84 35 - 104 U/L 05/19/2025 10:40 AM [facility] AST 17 0 - 35 U/L 05/19/2025 10:40 AM [facility] ALT 19 0 - 35 U/L 05/19/2025 10:40 AM [facility] GFR >60 >=60 mL/min/1.7 3 sq meter 05/19/2025 10:40 AM [facility] Comment:eGFR calculated with 2020 CKD-EPI equation. Vegetarian diet, extremely high or low muscle mass, and may affect results. Cystatin C with Glomerular Filtration Rate is a suitable alternative for these patients. ANION GAP 10 5 - 20 mmol/L 05/19/2025 10:40 AM [facility] Blood Venipuncture / Unknown 05/19/2025 10:14 AM CDT 05/19/2025 10:18 AM T us Demarcus Arevalo MD CHEMISTRY ORDERABLES Final Resu lt [id number] [address] [place] [address] * CERV/VAG CYTO SCREEN PAP W/HPV (08/28/2018 10:00 AM GALLERY MANAGER) PAP INTERP See Separate Results 09/04/2018 3:38 PM GALLERY MANAGER [facility] [employer] [facility] Genital SWAB OF ENDOCERVIX / Unknown Collection / Unknown 08/28/2018 10:00 AM GALLERY MANAGER 08/29/2018 6:45 AM GALLERY MANAGER K[employer] Richard FREIGHT BRAKE OPERATOR PATHOLOGY/CYTOLOGY ORDERABLES Fi nal Result [facility] CLIA# [id number] [address] [place] [address] [facility] [employer] [facility] CLIA# [id number] [facility] [place] [address] * CERV/VAG CYTO SCREEN PAP W/O HPV (08/28/2018 10:00 AM GALLERY MANAGER) CLINICAL INFORMATION SEE COMMENT 09/02/2018 2:44 PM GALLERY MANAGER [facility] Comment:Routine exam LAST MENSTRUAL PERIOD [id number]/02/2018 2:44 PM GALLERY MANAGER [facility] PREV PAP: SEE COMMENT 09/02/2018 2:44 PM GALLERY MANAGER [facility] Comment:INFORMATION NOT PROV IDED PREV BX: SEE COMMENT 09/02/2018 2:44 PM GALLERY MANAGER [facility] Comment:INFORMATION NOT PROV IDED SOURCE [employer] 09/02/2018 2:44 PM GALLERY MANAGER [facility] ADEQUACY: SEE COMMENT 09/02/2018 2:44 PM GALLERY MANAGER [facility] Comment: Satisfactory for evaluation. Endocervical/transformation zone component present. PAP INTERP SEE COMMENT 09/02/2018 2:44 PM GALLERY MANAGER [facility] Comment:Negative for intraep ithelial lesion or malignancy. COMMENT SEE COMMENT 09/02/2018 2:44 PM GALLERY MANAGER [facility] Comment: This Pap test has been evaluated with computer assisted technology. SLEDGER: SEE COMMENT 2017 2:44 PM GALLERY MANAGER [facility] Comment: MVB, CT(ASCP) CT screening location: [place] [address] [address] [place] [address] EXPLANATORY NOTE SEE COMMENT 018 2:44 PM GALLERY MANAGER [facility] Comment: EXPLANATORY NOTE: The Pap is a screening test for cervical cancer. It is not a diagnostic test and is subject to false negative and false positive results. It is most reliable when a satisfactory sample, regularly obtained, is submitted with relevant clinical findings and history, and when the Pap result is evaluated along with historic and current clinical information. Genital SWAB OF ENDOCERVIX / Unknown Collection / Unknown 08/28/2018 10:00 AM GALLERY MANAGER 08/30/2018 7:45 AM GALLERY MANAGER Narrative [facility] - 09/02/2018 2:44 PM GALLERY MANAGER Performing Organization Information: Site ID: [place] Name[facility] Address: [address] [address] [place] [place] [address] Director: Marti Isidro Kusum Richard FREIGHT BRAKE OPERATOR PATHOLOGY/CYTOLOGY ORDERABLES Fi nal Result [facility] from Last 3 Months or Most Recently Relevant to Health Maintenance Insurance [facility] MEDICAID Care Teams Cargo Handler Relationship Specialty Start Date End Date William White MD [address] [facility] [address] [place] [address] PCP - General Family Practice 02/19/22
--- NOTE | 2025-07-16 08:53 | PC.NURSE ---
SCDs Pt up in rojas ambulating. Contraindicated at this time.
--- NOTE | 2025-07-16 11:04 | PC.CHAP ---
Pastoral Care Encounter/Spiritual Assessment Type of Contact [] Declined mosaic tiler visit [] Patient/Family/Request visit [] Outpatient visit [] Follow-up visit [] Physician referral [] Code/Alert [x] Routine visit [] Staff referral [] Actively dying [] Patient sleeping [x] Family support [] [] Out of room [] Palliative care [] [] Receiving care in room [] Pre-surgical visit [] Trauma [] Long length of stay [] ICU visit [] Other: Relational/Emotional Strength [x] Patient feels connected with others/family/visitors/staff [] Distress [] Loneliness/isolation [] Abandonment Spirituality of Patient [x] Person of Amisha [] Attends Yazidism of their Amisha [x] Believes in Prayer [] Reads Bible or Bahai materials [] There are Spiritual issues to be addressed Neurologist Interventions [xx] Prayer [x] Active listening [] Non-anxious presence [x] Spiritual/emotional support [] Crisis/trauma care [] Spiritual counseling [] Bereavement support [] Provided bereavement packet [] Provided Bible/devotional materials [] Provided toy/stuffed animal, coloring book to patient or family member [] Provided Communion [] Anointing/Ney [] Salvation [x] Completed spiritual assessment [] Other: Impact on Illness or Injury [] Angry [] Fearful [] Anxious [] Often cries [] Exhaustion [] Unable to work [] Unable to attend anglican [] Unable to walk/stand [] Unable to read [] Unable to drive [] Unable to eat/drink [] Unable to sleep [] Unable to be with family [] Patient intubated [] Other: Summary Time spent with patient 5 min
--- NOTE | 2025-07-16 13:24 | P.DS_ITS ---
Discharge Providers Date of Admission: 07/15/25 10:10 Date of Discharge: July 16, 2025 Attending Provider at Admission: Mckinley Kyle DO Attending Provider at Discharge: Mckinley Kyle DO Primary Care Provider: KAIN Acuna Reason for Visit Reason for Visit: M43.17 Physical Exam Narrative: Patient doing well. Up walking. Wounds clean dry and intact. 5-5 strength. Urinary Catheter Management: Latex Free: Cath Placed During This Visit: yes, but has since been removed by the nurse Reason for Continuing Indwelling Catheter: Other Urinary Catheter Date of Insertion: 07/15/25 Urinary Catheter Time of Insertion: 07:30 Date Urinary Catheter Removed: 07/15/25 Time Urinary Catheter Discontinued: 15:00 Discharge Data Studies Completed and Pending Completed Studies During Hospitalization Category Date Time Status XR lumbar spine 2-3V* [id number] Routine Exams 07/15/25 00:00 Completed Laboratory Results Urine HCG, Qual Negative (Negative) 07/15/25 06:13 Vitals Last Vital Signs Temp 98.6 F 07/16/25 11:19 Pulse 82 07/16/25 11:19 Resp 17 07/16/25 11:19 BP 97/62 07/16/25 11:19 Pulse Ox 97 07/16/25 11:19 O2 Del Method Room Air 07/16/25 11:19 O2 Flow Rate 8 07/15/25 11:05 Discharge Plan Discharge Patient Disposition: Home Condition: Stable Prescriptions: New hydrocodone-acetaminophen 5-325 mg tablet 1 - 2 tab PO .Q4-6H Qty: 40 0RF Continued Tremfya 100 mg/mL auto-injector 100 mg SUBCUT .[id number] Qty: 1 5RF hydroxyzine HCl 25 mg tablet 25 mg PO TID PRN (Reason: Itching) lisinopril 5 mg tablet 5 mg PO QDAY budesonide-formoterol [Symbicort] 80-4.5 mcg/actuation HFA aerosol inhaler 2 puff inhalation BID Qty: 10.2 6RF (DME) Bone Growth Stimulator See Rx Instructions .Route .MEDSUPPLY Qty: 1 0RF Rx Instructions: As directed Discharge Order = DC NOW: Discharge Order (Routine); Ordered 07/16/25 Ordered By: Mckinley Kyle Other Ambulatory Orders: DME: Walker (Order) Location: None Selected Ordered By: Mckinley Kyle Referrals: [facility] [Outside] Mckinley Kyle DO [Physician, Orthopedics] - 07/30/25 8:30 am Patient Instructions: Acute Wound Care (DC), Opioid Safety, Post Anesthesia Care, Patient Portal & Diogo Instructions Activity Restrictions/Additional Instructions: Thank you for choosing [facility] for your care! The following is a list of instructions, from your provider, to follow upon your discharge to ensure you have the optimal recovery from your recent injury or surgery. Follow-up care is a mayo part of your treatment and safety. Be sure to make and go to all appointments, and call your doctor if you are having problems. If you do not already have a follow-up appointment made, call Dr. Kyle's office in the next 1-3 days to make follow up appointment for 1 weeks at [phone]. It is also a good idea to know your test results and keep a list of the medicines you take. Medications will be prescribed for you at your provider?s discretion. These medications are to be used as instructed;if they are taken more often that prescribed they will not be refilled early and in most cases will not be refilled at all. > When a refill is needed,you should contact our office 2-3 business days beforeyour prescription runs out. Medications will NOTbe refilled by education adviser providers after hours! > Many pain medications contain Tylenol (Acetaminophen). Do not consume more than 4,000 mg of Tylenol per day in total with any combination of medications. > Pain medications can cause constipation. Please use an over the counter stool softener as directed, while taking pain medications. Consult your local pharmacist with questions or recommendations on stool softeners. If constipation persists, contact our office or your primary care provider. > While under our care,you are not to receive pain medications or other controlled substances from any other provider unless our office is notified and approves. Any attempts to do so will result in refusal to prescribe any further pain medications and possible dismissal from our practice. ? Keep dressing on for 1 week will change in the clinic. ? Showering is permitted, however we ask that you do not take a bath, sit in a whirlpool / Jacuzzi, or go swimming for 1 month. For only the first 2 days after surgery, lt wilt be necessary for you to cover your wound/dressing with plastic and tape to keep it dry. ? Walking is essential for the healing process after surgery. We would like you to slowly advance your walking. This should be done on relatively flat clear ground (inside or out) or can be done on a treadmill. Remember this goal does not have to happen all at once, slowly increase your distance and duration. This can be broken into more more than one walk per day as tolerated. Patients who walk as directed after surgery rarely require Physical Therapy. In the unlikely event this issue arises your provider will direct hospital staff to make the appropriate arrangements. ? No lifting over 5 pounds {a gallon of milk) or bending/twisting until further notice. Each of these activities places an unnecessary amount of stress onto the body and can impede the delicate healing process. > Instead of bending at the waist, keep your back straight and bend at the knees. > Instead of twisting your torso, keep your back straight and turn your entire body with your feet. ? You may sleep in any position which makes you comfortable.Many patients find comfort sleeping in a reclining chair. It is not abnormal to have difficulty sleeping for the first several weeks following your surgery. We recommend trying Benadryl or Tylenol PM as directed to help with your sleeping difficulties. Both medications are over the counter and available without prescription. ? NO SMOKING!!!Smoking dramatically increases the probability of developing postoperative wound infections. ? Common complaints after lumbar and/or thoracic spine surgery include, but are not limited to: numbness and/or tingling in the legs, pain around the incision and surrounding tissues, muscle spasms, or stiffness of the middle to low back. Contact our office if these symptoms persist or if an acute change occurs. ? No driving for the first 3-5 days, and not while taking narcotics until seen at your follow-up appointment and cleared.There are no restrictions for riding on short trips, however if you take a longer trip, arrangements should be made to make regular stops to get out of the vehicle and stretch . ? Swelling is an unfortunate event that will take place with any surgery and is the primary source of your postoperative discomfort. While walking and regular approved activities helps control inflammation, there are additional steps you can take to minimize swelling. > Place ice over the surgical site and surrounding tissue for twenty minutes, followed by applying a low/medium heat (heating pad) for an additional twenty minutes every 1-2 hours as needed for pain relief. > You may use of over the counter anti-inflammatory medications (Ibuprofen, Motrin, Aleve, Advil, etc) as directed on the package label. These types of medicines will significantly reduce the amount of discomfort you experience after surgery from swelling. It should be noted that if you have an allergy to any of these medications, or a history of ulcers or kidney disease you should consult your primary care provider prior to starting these medications. Discharge Attestations Time Spent in Discharge Care*: less than 30 min Quality Metrics Clinical Quality Measures [ No reported AMI, CVA or VTE this stay] Coding Level of Care Code Acute Code for Chg Enzo
== END 2025-07-16 14:45 | disposition home or self-care (01) | DRG 428 ==
LOC: MEDSURG 07-16 05:53
PROVIDERS: Anesthesiology; Admitting Provider Orthopaedic Surgery; PCP Nurse Practitioner Family; Visit Provider Orthopaedic Surgery
PROC: 0SG30AJ Fusion of Lumbosacral Joint with Interbody Fusion Device, Posterior Approach, Anterior Column, Open Approach (ICD-10-PCS; principal; 2025-07-15 07:00)
PROC: 0SG30AJ Fusion of Lumbosacral Joint with Interbody Fusion Device, Posterior Approach, Anterior Column, Open Approach (ICD-10-PCS; CPT 22612; 2025-07-15 07:00)
PROC: 0SG30AJ Fusion of Lumbosacral Joint with Interbody Fusion Device, Posterior Approach, Anterior Column, Open Approach (ICD-10-PCS; 2025-07-15 07:00)
PROC: 0SG30AJ Fusion of Lumbosacral Joint with Interbody Fusion Device, Posterior Approach, Anterior Column, Open Approach (ICD-10-PCS; CPT 27280; 2025-07-15 07:00)
DX: M43.17 Spondylolisthesis, lumbosacral region (principal); F17.210 Nicotine dependence, cigarettes, uncomplicated; J45.909 Unspecified asthma, uncomplicated; M51.369 Other intervertebral disc degeneration, lumbar region without mention of lumbar back pain or lower extremity pain; G89.29 Other chronic pain; L40.50 Arthropathic psoriasis, unspecified; K21.9 Gastro-esophageal reflux disease without esophagitis; G57.00 Lesion of sciatic nerve, unspecified lower limb; Z79.51 Long term (current) use of inhaled steroids; Z91.014 Allergy to mammalian meats
CPT/HCPCS: 51702; 72100; 76000; 81025; 94640; 97116; 97161; 97530; C1713; C1734; C1776; C9359; J0690; J1100; J1171; J1885; J2250; J2704; J2795; J3010; J3260; J3373; J3490; J7030; J7120; J7613; J9999

== ENCOUNTER 2025-07-21 08:56 | Emergency (ER) | payer BC, MEDICAID, SELFPAY ==
--- OUTSIDE RECORDS SUMMARY | 2025-07-21 08:59 | XMS_ITS | Clinical Summary ---
Author Organization [facility] Address [address] [place] [address] Care Team Providers Care Still Cleaner Tube Name Role Phone William White MD Primary Care Provider [phone] Allergies Active Allergy Reactions Criticality Noted Date Comments Egg Other (See Comments) 11/01/2018 Rash as a child Latex Rash Low Pjexq-Vubig-Mssiptx-Pra moxine Hives High Tramadol Anaphylaxis High 01/12/2016 [...] Pain. 12/05/19 25 Active Narcan 4 mg/actuation [place], Non-Aerosol SPRAY 1 DOSE INTO 1 NOSTRIL [...] Encounters Date Type Department Care Team Description 07/16/2025 External Device Data STL ABSTRACTION Provider, Abstract 07/02/2025 External Device Data STL ABSTRACTION Provider, Abstract 06/19/2025 External Device Data STL ABSTRACTION Provider, Abstract 06/18/2025 External Device Data STL ABSTRACTION Provider, Abstract 06/18/2025 External Device Data STL ABSTRACTION Provider, Abstract 06/14/2025 8:20 AM CDT Office Visit [facility] Medicine [address] [phone] Rakel Connors, KAIN Acute non-recurrent maxillary sinusitis (Primary Dx); Itching; HTN (hypertension), benign 06/11/2025 External Device Data STL ABSTRACTION Provider, Abstract 05/21/2025 External Device Data STL ABSTRACTION Provider, Abstract 05/21/2025 External Device Data STL ABSTRACTION Provider, Abstract 05/21/2025 External Device Data STL ABSTRACTION Provider, Abstract 05/19/2025 10:08 AM CDT - 05/19/2025 11:40 AM CDT Emergency [facility] Emergency Medicine [address] [place] [address] Demarcus Arevalo MD Intercostal neuralgia (Primary Dx) [...] on file Legal Sex Female 8:45 AM ADVENTURE THERAPIST Gender Identity Not on file Sexual Orientation [...] SCREEN PAP W/HPV Routine 08/28/2018 10:00 AM ADVENTURE THERAPIST CERV/VAG CYTO SCREEN PAP W/O HPV Routine 08/28/2018 10:00 AM ADVENTURE THERAPIST from Last 3 Months or Most Recently Relevant to Health Maintenance Results * EKG 12-LEAD (05/19/2025 11:21 AM CDT) Narrative Demarcus Arevalo MD - 05/19/2025 11:21 AM CDT Demarcus Arevalo MD 05/23/2025 1:16 PM EKG 12-LEAD Date/Time: 05/19/2025 11:21 AM Performed by: Demarcus Arevalo MD Authorized by: Demarcus Arevalo MD ECG interpreted by ED Physician in the absence of a sales and merchandising representative: yes Rate: ECG rate: 82 ECG rate assessment: age appropriate Rhythm: Rhythm Origin: sinus [place]: QRS axis: Normal Intervals: normal QRSTT: QRSTT [...] BASELINE, 5TH GEN (05/19/2025 10:14 AM CDT) [facility] TROPONIN T, BASELINE 5TH GEN <6 <=10 ng/L 05/19/2025 10:41 AM CDT [facility] Blood Venipuncture / Unknown 05/19/2025 10:14 AM CDT 05/19/2025 10:18 AM CDT Narrative [facility] - 05/19/2025 10:41 AM CDT Troponin Undetectable us Demarcus Arevalo MD CHEMISTRY ORDERABLES Final Resu lt [facility] CLIA # [id number] [address] [place] [address] * (ABNORMAL) MANUAL DIFFERENTIAL (05/19/2025 10:14 AM CDT) SEGMENTED NEUTROPHILS 62 45 - 70 % 05/19/2025 10:40 AM [facility] LYMPHOCYTES RELATIVE 31 20 - 45 % 05/19/2025 10:40 AM [facility] ATYPICAL LYMPHOCYTES RELATIVE 3(H) <=0 % 05/19/2025 10:40 AM [facility] MONOCYTES RELATIVE 2 2 - 8 % 05/19/2025 10:40 AM [facility] EOSINOPHILS RELATIVE 1 0 - 5 % 05/19/2025 10:40 AM [facility] BASOPHILS RELATIVE 1 0 - 2 % 05/19/2025 10:40 AM [facility] NEUTROPHILS ABSOLUTE COUNT 10.11(H) 1.78 - 5.38 K/uL 05/19/2025 10:40 AM [facility] LYMPHOCYTES ABSOLUTE 5.05(H) 1.20 - 4.00 K/uL 05/19/2025 10:40 AM [facility] MONOCYTES ABSOLUTE 0.33 0.30 - 0.82 K/uL 05/19/2025 10:40 AM [facility] EOSINOPHILS ABSOLUTE 0.16 0.04 - 0.54 K/uL 05/19/2025 10:40 AM [facility] BASOPHILS ABSOLUTE 0.16(H) 0.01 - 0.08 K/uL 05/19/2025 10:40 AM [facility] TOTAL CELLS COUNTED IN DIFF 100 05/19/2025 10:40 AM [facility] PLATELET EST. Adequate 05/19/2025 10:40 AM [facility] RBC MORPHOLOGY Normal 05/19/2025 10:40 AM [facility] Blood Venipuncture / Unknown 05/19/2025 10:14 AM CDT 05/19/2025 10:18 AM CDT us Demarcus Arevalo MD HEMATOLOGY ORDERABLES COM Final Result [facility] CLIA # [id number] [address] [place], [place] [address] * LACTIC ACID (05/19/2025 10:14 AM CDT) LACTIC ACID 1.3 <=2.0 mmol/L 05/19/2025 10:41 AM [facility] Blood BLOOD SPECIMEN / Unknown Venipuncture / Unknown 05/19/2025 10:14 AM CDT 05/19/2025 10:18 AM CDT us Demarcus Arevalo MD CHEMISTRY ORDERABLES Final Resu lt [facility] CLIA # [id number] [address] [address] * (ABNORMAL) CBC WITH DIFFERENTIAL (05/19/2025 10:14 AM CDT) WBC 16.3(H) 4.0 - 10.0 K/uL 05/19/2025 10:40 AM [facility] RBC 4.61 3.93 - 5.22 M/uL 05/19/2025 10:40 AM [facility] HEMOGLOBIN 14.3 11.2 - 15.7 g/dL 05/19/2025 10:40 AM [facility] HEMATOCRIT 42.1 34.1 - 44.9 % 05/19/2025 10:40 AM [facility] MCV 91.3 79.4 - 94.8 fL 05/19/2025 10:40 AM [facility] MCH 31.0 25.6 - 32.2 pg 05/19/2025 10:40 AM [facility] MCHC 34.0 32.2 - 35.5 g/dL 05/19/2025 10:40 AM [facility] RDW 13.1 11.0 - 14.5 % 05/19/2025 10:40 AM [facility] RDW-STDEV 43.4 36.9 - 56.9 fL 05/19/2025 10:40 AM CDT [facility] PLATELETS 370(H) 163 - 337 K/uL 05/19/2025 10:40 AM CDT [facility] MPV 9.1(L) 10.0 - 14.8 fL 05/19/2025 10:40 AM CDT [facility] Blood Venipuncture / Unknown 05/19/2025 10:14 AM CDT 05/19/2025 10:18 AM CDT us Demarcus Arevalo MD HEMATOLOGY ORDERABLES Final Res ult Performing Organization Address [facility]/ZIP Co de Phone Number [facility] CLIA # [id number] [address] [place] [address] * PTT (05/19/2025 10:14 AM CDT) PTT 27.4 25.1 - 35.4 seconds 05/19/2025 10:40 AM CDT [facility] Blood Venipuncture / Unknown 05/19/2025 10:14 AM CDT 05/19/2025 10:18 AM CDT us Demarcus Arevalo MD HEMATOLOGY ORDERABLES Final Res ult Performing Organization Address [facility]/ZIP Co de Phone Number [facility] CLIA # [id number] [address] [place] [address] * SEDIMENTATION RATE (05/19/2025 10:14 AM CDT) ESR (SEDIMENTATION RATE) 12 0 - 20 mm/Hr 05/19/2025 10:33 AM CDT [facility] Blood Venipuncture / Unknown 05/19/2025 10:14 AM CDT 05/19/2025 10:18 AM CDT Narrative [facility] - 05/19/2025 10:33 AM CDT Tube Lot: #[id number] Exp Date: 10/23/2026 QC1 LOT [id number] EXP.10/28/2025 QC2 LOT [id number] EXP.10/28/2025 us Demarcus Arevalo MD HEMATOLOGY ORDERABLES Final Res ult [facility] CLIA # [id number] [address] [place] [address] * PROTIME-INR (05/19/2025 10:14 AM CDT) PROTIME 12.5 12.1 - 14.3 Seconds 05/19/2025 10:40 AM CDT [facility] INR 0.9 0.9 - 1.1 05/19/2025 10:40 AM CDT [facility] Blood Venipuncture / Unknown 05/19/2025 10:14 AM CDT 05/19/2025 10:18 AM CDT us Demarcus Arevalo MD HEMATOLOGY ORDERABLES Final Res ult Performing Organization Address [facility]/ZIP Co de Phone Number [facility] CLIA # [id number] [address] [place] [address] * D-DIMER (05/19/2025 10:14 AM CDT) D-DIMER QUANT 0.17 <0.50 ug/mL FEU 05/19/2025 10:40 AM CDT [facility] Blood Venipuncture / Unknown 05/19/2025 10:14 AM CDT 05/19/2025 10:18 AM CDT Narrative [facility] - 05/19/2025 10:40 AM CDT D-Dimer assay cutoff value for exclusion of DVT and/or PE is <0.50 ug/mL FEU. us Demarcus Arevalo MD HEMATOLOGY ORDERABLES Final Res ult [facility] CLIA # [id number] [address] [place] [address] * (ABNORMAL) C-REACTIVE PROTEIN (05/19/2025 10:14 AM CDT) CRP 7.2(H) <5.0 mg/L 05/19/2025 10:40 AM CDT [facility] Blood Venipuncture / Unknown 05/19/2025 10:14 AM CDT 05/19/2025 10:18 AM CDT us Demarcsu Arevalo MD CHEMISTRY ORDERABLES Final Resu lt Performing Organization Address [facility] Co de Phone Number [facility] CLIA # [id number] [address] [place] [address] * BRAIN NATRIURETIC PEPTIDE, BNP OR PROBNP (05/19/2025 10:14 AM CDT) PROBNP, N TERMINAL 60 0 - 125 pg/mL 05/19/2025 10:40 AM CDT [facility] Comment: INTERPRETIVE COMMENT based on diagnosis: [...] ORDERABLES Final Resu lt Performing Organization Address City/[facility]/ZIP Co de Phone Number [facility] CLIA # [id number] [address] [place] [address] * MAGNESIUM LEVEL (05/19/2025 10:14 AM CDT) MAGNESIUM 1.9 1.6 - 2.6 mg/dL 05/19/2025 10:40 AM CDT [facility] Blood Venipuncture / Unknown 05/19/2025 10:14 AM CDT 05/19/2025 10:18 AM CDT us Demarcus Arevalo MD CHEMISTRY ORDERABLES Final Resu lt Performing Organization Address City/[facility]/ZIP Co de Phone Number [facility] CLIA # [id number] [address] [place] [address] * LIPASE (05/19/2025 10:14 AM CDT) LIPASE 31 13 - 60 U/L 05/19/2025 10:40 AM CDT [facility] Blood Venipuncture / Unknown 05/19/2025 10:14 AM CDT 05/19/2025 10:18 AM CDT us Demarcus Arevalo MD CHEMISTRY ORDERABLES Final Resu lt Performing Organization Address City/[facility]/ZIP Co de Phone Number [facility] CLIA # [id number] [address] [place] [address] * (ABNORMAL) COMPREHENSIVE METABOLIC PANEL (05/19/2025 10:14 AM CDT) SODIUM 138 136 - 145 mmol/L 05/19/2025 10:40 AM CDT [facility] POTASSIUM 3.9 3.5 - 5.1 mmol/L 05/19/2025 10:40 AM CDT [facility] CHLORIDE 102 98 - 107 mmol/L 05/19/2025 10:40 AM CDT [facility] CO2 26 22 - 29 mmol/L 05/19/2025 10:40 AM CDT [facility] CALCIUM 9.6 8.6 - 10.0 mg/dL 05/19/2025 10:40 AM [facility] BUN 8 6 - 20 mg/dL 05/19/2025 10:40 AM [facility] CREATININE 0.61 0.51 - 0.95 mg/dL 05/19/2025 10:40 AM [facility] GLUCOSE 100(H) 74 - 99 mg/dL 05/19/2025 10:40 AM [facility] TOTAL PROTEIN 7.2 6.6 - 8.7 g/dL 05/19/2025 10:40 AM [facility] ALBUMIN 4.2 3.5 - 5.2 g/dL 05/19/2025 10:40 AM [facility] BILIRUBIN TOTAL 0.2 0.0 - 1.2 mg/dL 05/19/2025 10:40 AM [facility] ALKALINE PHOSPHATASE 84 35 - 104 U/L 05/19/2025 10:40 AM [facility] AST 17 0 - 35 U/L 05/19/2025 10:40 AM [facility] ALT 19 0 - 35 U/L 05/19/2025 10:40 AM [facility] GFR >60 >=60 mL/min/1.7 3 sq meter 05/19/2025 10:40 AM [facility] Comment:eGFR calculated with 2020 CKD-EPI equation. Vegetarian diet, extremely high or low muscle mass, and may affect results. Cystatin C with Glomerular Filtration Rate is a suitable alternative for these patients. ANION GAP 10 5 - 20 mmol/L 05/19/2025 10:40 AM [facility] Blood Venipuncture / Unknown 05/19/2025 10:14 AM CDT 05/19/2025 10:18 AM T us Demarcus Arevalo MD CHEMISTRY ORDERABLES Final Resu lt [facility] CLIA # [id number] [address] [place] [id number] * CERV/VAG CYTO SCREEN PAP W/HPV (08/28/2018 10:00 AM ADVENTURE THERAPIST) PAP INTERP See Separate Results 09/04/2018 3:38 PM ADVENTURE THERAPIST [facility] Genital SWAB OF ENDOCERVIX / Unknown Collection / Unknown 08/28/2018 10:00 AM ADVENTURE THERAPIST 08/29/2018 6:45 AM ADVENTURE THERAPIST Kusum Richard FIRER DIESEL LOCOMOTIVE PATHOLOGY/CYTOLOGY ORDERABLES Fi nal Result [facility] CLIA# [id number] [address] [place] [address] [facility] CLIA# [id number] [address] [place] [address] * CERV/VAG CYTO SCREEN PAP W/O HPV (08/28/2018 10:00 AM ADVENTURE THERAPIST) Pathologist [facility] CLINICAL INFORMATION SEE COMMENT 09/02/2018 2:44 PM ADVENTURE THERAPIST [facility] Comment:Routine exam LAST MENSTRUAL PERIOD [id number]/02/2018 2:44 PM ADVENTURE THERAPIST [facility] PREV PAP: SEE COMMENT 09/02/2018 2:44 PM ADVENTURE THERAPIST [facility] Comment:INFORMATION NOT PROV IDED PREV BX: SEE COMMENT 09/02/2018 2:44 PM ADVENTURE THERAPIST [facility] Comment:INFORMATION NOT PROV IDED SOURCE Endocervix 09/02/2018 2:44 PM ADVENTURE THERAPIST [facility] ADEQUACY: SEE COMMENT 09/02/2018 2:44 PM ADVENTURE THERAPIST [facility] Comment: Satisfactory for evaluation. Endocervical/transformation zone component present. PAP INTERP SEE COMMENT 09/02/2018 2:44 PM ADVENTURE THERAPIST [facility] Comment:Negative for intraep ithelial lesion or malignancy. COMMENT SEE COMMENT 09/02/2018 2:44 PM ADVENTURE THERAPIST [facility] Comment: This Pap test has been evaluated with computer assisted technology. RETARDER OPERATOR: SEE COMMENT 2017 2:44 PM ADVENTURE THERAPIST [facility] Comment: MVB, CT(ASCP) CT screening location: [place] [address] [address] [place] [address] EXPLANATORY NOTE SEE COMMENT 018 2:44 PM ADVENTURE THERAPIST [facility] ST Comment: EXPLANATORY NOTE: The Pap is a [...] Unknown Collection / Unknown 08/28/2018 10:00 AM ADVENTURE THERAPIST 08/30/2018 7:45 AM ADVENTURE THERAPIST Narrative [facility] - 09/02/2018 2:44 PM ADVENTURE THERAPIST Performing Organization Information: Site ID: [facility] Name: [facility] Address: [address] [address] [place] [address] Director: Marti Isidro Kusum Richard FIRER DIESEL LOCOMOTIVE PATHOLOGY/CYTOLOGY ORDERABLES Fi nal Result [facility] from Last 3 Months or Most Recently Relevant to Health Maintenance Insurance [facility] MEDICAID Care Teams Still Cleaner Tube Relationship Specialty Start Date End Date William White MD [address] [place] [address] PCP - General Family Practice 02/19/22
--- OUTSIDE RECORDS SUMMARY | 2025-07-21 08:59 | XMS_ITS | Encounter Summary ---
Author Organization [facility] Address [address] [place] [address] Care Team Providers Care Railroad Maintenance Clerk Name Role Phone William White MD Primary Care Provider [phone] Encounter Details Date Type Department Care Team (Late st Contact Info) Description 07/16/2025 External Device Data [facility] ABSTRACTION Provider, Abstract NO ADDRESS ON FILE Social History Tobacco Use Types Packs/Day Years Used Date Smoking Tobacco: Every Day Cigarettes Last attempted to quit: 09/01/2020 Smokeless Tobacco: Never Alcohol Use Standard Drinks/Week Comments No 0 (1 standard drink = 0.6 oz pur e alcohol) Feeling Safe Answer Date Recorded Are you in a relationship wi th someone who hurts you emotionally and/or physically? No 05/19/2025 Comments No Sex and Gender Information Value Date Recorded Sex Assigned at Not on file Legal Sex Female 8:45 AM CAR PACKER Gender Identity Not on file Sexual Orientation Not on file documented as of this encounter Plan of Treatment Not on file documented as of this encounter Visit Diagnoses Not on filedocumented in this encounter Additional Health Concerns Assessment Noted Time PHQ-9 Depression Total Score: 1 11/23/19 25 5:15 PM CAR PACKER documented as of this encounter Care Teams Railroad Maintenance Clerk Relationship Specialty Start Date End Date William White MD [address] [place] [address] PCP - General Family Practice 02/19/22 documented as of this encounter
[2025-07-21 09:55] VITALS: BP 135/85; PULSE 88; TEMP 36.7; O2SAT 100
--- NOTE | 2025-07-21 10:09 | W.ED.BACK ---
HPI - Back Pain/Injury General: Chief Complaint: Back Pain/Injury Stated Complaint: 6 days post op back surg, unable to move, pain Time Seen by Provider: 07/21/25 10:06 Source: patient and family Mode of arrival: wheelchair Limitations: no limitations History of Present Illness: Patient is a 44-year-old female presents to ED today along with her significant other for evaluation of postsurgical back pain. Patient underwent back surgery by Dr. Kyle 6 days ago. Procedure listed below: Procedure: 1. L5/S1 Interbody fusion with posterolateral fusion 2. Interbody cage placed at L5-S1 3. L3 to pelvis fusion 4. L3-S1 posterior spine instrumentation 5. Lumbopelvic instrumentation 6. Open SI joint fusion on the right 7. Open SI joint fusion on the left 8. Use of computer navigation stereotactic for spine 9. Use of allograft Patient states she was doing okay following surgery until the last few days when she feels like pain has worsened. She is not running fevers. She did run out of her pain medications-apparently had tried to contact Dr. Kyle's office on and I believe they did try to refill these but the pharmacy would not fill them stating it was a duplicate prescription and she was not due to be out of her pain medications early . She does report she has a follow-up with Dr. Kyle scheduled for Tuesday. Significant other states they have not noticed any redness or drainage to the incision site. She is not complaining of weakness, numbness, tingling to her legs. MD elicited complaint: back pain Pertinent past history: back surgery Onset (ago): day(s) Timing: constant Severity: severe Location: lumbar spine Radiation: none Exacerbating factors: movement and walking Relieving factors: none Associated symptoms: Reports no associated symptoms and difficulty walking (secondary to back pain); Deny abdominal pain, chills, dysuria, fatigue, fever(s) or hematuria Treatments prior to arrival: prescription analgesics Work related injury: No Related Data Home Medications ?Medication ?Instructions ?Recorded ?Confirmed hydroxyzine HCl 25 mg tablet 25 mg PO TID PRN Itching 06/17/25 07/21/25 lisinopril 5 mg tablet 5 mg PO QDAY 07/10/25 07/21/25 Previous Rx's ?Medication ?Instructions ?Recorded budesonide-formoterol HFA 80 2 puff inhalation BID #10.2 grams 02/25/25 mcg-4.5 mcg/actuation aerosol inhaler (Symbicort) guselkumab 100 mg/mL subcutaneous 100 mg SUBCUT .[id number] #1 mL 03/12/25 auto-injector (Tremfya) Bone Growth Stimulator #1 ea 07/16/25 Shower Chair #1 ea 07/19/25 hydrocodone 5 mg-acetaminophen 325 1 - 2 tab PO .Q4-6H PRN pain 7 07/19/25 mg tablet days #40 tabs dexamethasone 6 mg tablet 6 mg PO DAILY #6 tabs 07/21/25 hydrocodone 7.5 mg-acetaminophen 1 tab PO .q 4-6 #10 tabs 07/21/25 325 mg tablet ibuprofen 800 mg tablet 800 mg PO Q8H PRN pain #20 tabs 07/21/25 methocarbamol 500 mg tablet 1,000 mg (2 x 500 mg) PO Q8H #30 07/21/25 tabs Allergies Allergy/AdvReac Type Severity Reaction Status Date / Time doxycycline Allergy Severe ADR/ALGY-Pa Verified 07/21/25 10:01 lpitations methotrexate Allergy Severe heart Verified 07/21/25 10:01 palpitations, blurred vision to ER metronidazole Allergy Severe breathing Verified 07/21/25 10:01 issues, hives diclofenac Allergy Intermediate ADR-Chest Verified 07/21/25 10:01 Pain latex Allergy Intermediate swelling, Verified 07/21/25 10:01 rash, itching prednisone Allergy Intermediate INCREASES Verified 07/21/25 10:01 INFLAMMATION gabapentin Allergy Mild ADR-Hyperte Verified 07/21/25 10:01 nsion azithromycin Allergy Unknown unknown Verified 07/21/25 10:01 glutamine Allergy Unknown Unknown Verified 07/21/25 10:01 neomycin Allergy Unknown Unknown Verified 07/21/25 10:01 tofacitinib (From Xeljanz) Allergy Unknown ADR-Abdominal Verified 07/21/25 10:01 Pain upadacitinib (From Rinvoq) Allergy Unknown Unknown Verified 07/21/25 10:01 pramoxine Allergy Unknown Verified 07/21/25 10:01 topiramate (From Topamax) Allergy ADR-Gastrointestinal Verified 07/21/25 10:01 Upset Review of Systems Const: Denies: fever(s), chills, body aches, fatigue or malaise Card: Denies: chest pain Resp: Denies: dyspnea GI: Denies: abdominal pain or excessive flatus : Denies: flank pain, dysuria or hematuria Musc: Reports: back pain; Denies: neck pain, extremity pain, extremity swelling, joint pain, joint swelling, joint redness or joint warmth Skin/Breast: Denies: rash or erythema Neuro: Reports: difficulty walking (secondary to back pain); Denies: headache(s), numbness in extremities, weakness in extremities or sensory changes PFSH ED PFSH: Medical History 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 Epicondylitis, lateral (tennis elbow) Tobacco abuse disorder Piriformis syndrome of both sides Asthma Degenerative joint disease (DJD) of lumbar spine Chronic low back pain Psoriatic arthritis Palmoplantar pustular psoriasis High risk medication use Immunization counseling Low back pain Psoriasis Inflammatory arthritis Surgical History History of tubal ligation History of laparoscopy ovarian cyst Family History Other Diabetes Hypertension Rheumatoid arthritis Denies family history of Lupus CAD (coronary artery disease) Chronic kidney disease (CKD) Cancer Stroke Social History Smoking and tobacco/nicotine status: current every day tobacco/nicotine user cigarettes Packs smoked per day: 1 Years cigarettes smoked: 18 [ Other cigarette details: Started at age 25] Alcohol intake: current Alcohol intake frequency: holidays/special occasions only Substance/Drug Use: never Adopted: No Lives independently: Yes Household members: spouse, family and children Current occupation: disabled Physical Exam Const: COMMON NORMALS: average body habitus, patient oriented x3, no limitations, healthy appearing, alert and well nourished GENERAL APPEARANCE: cooperative and in distress (appears uncomfortable secondary to pain) Resp: COMMON NORMALS: normal respiratory effort and clear to auscultation bilaterally AUSCULTATION: clear to auscultation bilaterally Cardio: COMMON NORMALS: regular rate and regular rhythm RATE: regular rate RHYTHM: regular rhythm GI: COMMON NORMALS: Normal to inspection, nondistended, normoactive bowel sounds present, Soft to palpation, non-tender and no masses PALPATION: Yes Soft to palpation : COMMON NORMALS: Yes no CVA tenderness BLADDER/KIDNEY EXAM: Yes no CVA tenderness Back/Pelvis: COMMON NORMALS: no CVA tenderness LUMBAR SPINE/LOWER BACK: Yes lumbar spinal tenderness SACROILIAC JOINTS: Yes SI joints normal SACRUM: no tenderness COCCYX: no tenderness OTHER: surgical incision appears clean/well healing Extremity: COMMON NORMALS: normal to inspection, full ROM, capillary refill normal, no joint enlargement, no clubbing, cyanosis or edema, no calf tenderness and no pedal edema GENERAL: Yes normal exam except as noted Neuro: SHANNAN COMA SCALE: document GCS findings Shannan coma scale eye opening: Spontaneous Shannan coma scale verbal response: Orientated [place] coma scale motor response: Obey commands Shannan coma scale total score: 15 COMMON NORMALS: patient oriented x3, moves all extremities, no focal motor deficits and no sensory deficits noted SENSORIUM/ORIENTATION: Yes alert Skin: COMMON NORMALS: no rashes or lesions noted GENERAL SKIN EXAM: no rashes or lesions noted Course Vital Signs: Vital signs: Vital Signs Temperature 98.1 F 07/21/25 09:55 Pulse Rate 88 07/21/25 09:55 Blood Pressure 135/85 07/21/25 09:55 Pulse Oximetry 100 07/21/25 09:55 Oxygen Delivery Me thod Room Air 07/21/25 09:55 MDM - Back Pain/Injury Medical Decision Making Patient surgical site appears well. No neurologic deficits. Patient was given IV medications here and on re-assessment, feels significantly better. She was ambulatory here without difficulty or assistance. Patient feels comfortable going home and following up with Dr. Kyle on Tuesday as scheduled. Will place her on anti-inflammatories, muscle relaxers, steroids, and give her additional opiates to last her until this appointment. Medical Records I reviewed the patient's medical records. No radiology studies performed this visit Discharge Plan Discharge Patient Disposition: Home Clinical Impression: Postoperative back pain Condition: Stable Prescriptions: New methocarbamol 500 mg tablet 1,000 mg PO Q8H Qty: 30 0RF ibuprofen 800 mg tablet 800 mg PO Q8H PRN (Reason: pain) Qty: 20 0RF dexamethasone 6 mg tablet 6 mg PO DAILY Qty: 6 0RF hydrocodone-acetaminophen 7.5-325 mg tablet 1 tab PO .q 4-6 Qty: 10 0RF No Action Tremfya 100 mg/mL auto-injector 100 mg SUBCUT .[id number] Qty: 1 5RF hydroxyzine HCl 25 mg tablet 25 mg PO TID PRN (Reason: Itching) lisinopril 5 mg tablet 5 mg PO QDAY budesonide-formoterol [Symbicort] 80-4.5 mcg/actuation HFA aerosol inhaler 2 puff inhalation BID Qty: 10.2 6RF (DME) Bone Growth Stimulator See Rx Instructions .Route .MEDSUPPLY Qty: 1 0RF Rx Instructions: As directed (DME) Shower Chair See Rx Instructions .Route .MEDSUPPLY Qty: 1 0RF Rx Instructions: As directed hydrocodone-acetaminophen 5-325 mg tablet 1 - 2 tab PO .Q4-6H PRN (Reason: pain) 7 Days Qty: 40 0RF Discharge Orders: Discharge ED (Routine); Ordered 07/21/25 Ordered By: Rakel Forte Referrals: Itzel Zurita FNP [Primary Care Provider, Family Practice] Patient Instructions: Opioid Safety, Pain Management, Patient Portal & Diogo Instructions Activity Restrictions/Additional Instructions: As we discussed, continue plan to follow-up with Dr. Kyle on Tuesday as scheduled. 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
[2025-07-21 10:31] VITALS: PULSE 90; O2SAT 96
[2025-07-21] MEDS: ondansetron 2 mg/ML SDV 2 mL 4 MG IVP (11:02)
[2025-07-21] MEDS: orphenadrine 30 mg/mL Inj 2 mL 60 MG IVP (11:04)
[2025-07-21] MEDS: HYDROmorphone 0.5 MG/0.5 ML INJ 1 MG IVP (11:06)
[2025-07-21 11:11] VITALS: BP 133/98; PULSE 85; O2SAT 99
[2025-07-21 11:31] VITALS: BP 115/72; PULSE 80; O2SAT 92
--- NOTE | 2025-07-21 11:33 | PC.PHAR ---
patient states they took her off Lisinopril
[2025-07-21 12:25] VITALS: BP 109/66; PULSE 80; O2SAT 98
== END 2025-07-21 12:25 | disposition home or self-care (01) ==
PROVIDERS: Emergency Provider Physician Assistant; PCP Nurse Practitioner Family
DX: G89.18 Other acute postprocedural pain (principal); F17.210 Nicotine dependence, cigarettes, uncomplicated; Z98.890 Other specified postprocedural states
CPT/HCPCS: 96374; 96375; 99284; J1100; J1171; J1885; J2360; J2405

== ENCOUNTER → 2025-07-23 13:36 | Outpatient (BNVA) | payer BC, MEDICAID, SELFPAY | PROVIDERS: PCP Nurse Practitioner Family; Visit Provider Nurse Practitioner Family | DX: J02.0 Streptococcal pharyngitis (principal) | CPT/HCPCS: 87070; 87880 ==

== ENCOUNTER 2025-07-31 10:40 | Emergency (ER) | payer BC, MEDICAID, SELFPAY ==
[2025-07-31 10:53] VITALS: BP 134/75; PULSE 80; RESP 16; TEMP 37; O2SAT 97; BMI 30.5
--- NOTE | 2025-07-31 11:01 | W.ED.BACK ---
HPI - Back Pain/Injury General: Chief Complaint: Back Pain/Injury Stated Complaint: Lower back pain down into L leg Time Seen by Provider: 07/31/25 11:01 History of Present Illness: 44-year-old female with history of chronic pain syndrome on chronic opiate therapy, recent back surgery, asthma, psoriatic arthritis, who presents to the emergency room with low back pain and radiation down her left thigh. She saw Dr. Kyle yesterday and was doing a little bit better but in the middle of the night she woke up and developed this pain. No saddle numbness, no fecal or urinary retention or incontinence, no focal motor deficit, no sensory deficit. Related Data Previous Rx's ?Medication ?Instructions ?Recorded guselkumab 100 mg/mL subcutaneous 100 mg SUBCUT .[id number] #1 mL 03/12/25 auto-injector (Tremfya) Bone Growth Stimulator #1 ea 07/16/25 Shower Chair #1 ea 07/19/25 hydrocodone 5 mg-acetaminophen 325 1 - 2 tab PO .Q4-6H PRN pain 7 07/19/25 mg tablet days #40 tabs hydrocodone 7.5 mg-acetaminophen 1 tab PO .q 4-6 #10 tabs 07/21/25 325 mg tablet budesonide-formoterol HFA 80 2 puff inhalation BID #10.2 grams 07/22/25 mcg-4.5 mcg/actuation aerosol inhaler (Symbicort) nystatin 100,000 unit/mL oral 500,000 unit (5 mL) buccal TID 10 07/23/25 suspension days #150 mL hydrocodone 10 mg-acetaminophen 1 tab PO Q4H PRN pain 7 days #42 07/29/25 325 mg tablet tabs cyclobenzaprine 10 mg tablet 10 mg PO Q8H PRN muscle spasm #20 07/31/25 tabs dexamethasone 6 mg tablet 6 mg PO BID 5 days #10 tabs 07/31/25 Allergies Allergy/AdvReac Type Severity Reaction Status Date / Time doxycycline Allergy Severe ADR/ALGY-Pa Verified 07/30/25 07:43 lpitations methotrexate Allergy Severe heart Verified 07/30/25 07:43 palpitations, blurred vision to ER metronidazole Allergy Severe breathing Verified 07/30/25 07:43 issues, hives diclofenac Allergy Intermediate ADR-Chest Verified 07/30/25 07:43 Pain latex Allergy Intermediate swelling, Verified 07/30/25 07:43 rash, itching prednisone Allergy Intermediate INCREASES Verified 07/30/25 07:43 INFLAMMATION gabapentin Allergy Mild ADR-Hyperte Verified 07/30/25 07:43 nsion azithromycin Allergy Unknown unknown Verified 07/30/25 07:43 glutamine Allergy Unknown Unknown Verified 07/30/25 07:43 neomycin Allergy Unknown Unknown Verified 07/30/25 07:43 tofacitinib (From Xeljanz) Allergy Unknown ADR-Abdominal Verified 07/30/25 07:43 Pain upadacitinib (From Rinvoq) Allergy Unknown Unknown Verified 07/30/25 07:43 pramoxine Allergy Unknown Verified 07/30/25 07:43 topiramate (From Topamax) Allergy ADR-Gastrointestinal Verified 07/30/25 07:43 Upset Review of Systems Narrative: Constitutional symptoms: Negative except as documented in HPI. Skin symptoms: Negative except as documented in HPI. Eye symptoms: Negative except as documented in HPI. ENMT symptoms: Negative except as documented in HPI. Respiratory symptoms: Negative except as documented in HPI. Cardiovascular symptoms: Negative except as documented in HPI. Gastrointestinal symptoms: Negative except as documented in HPI. Genitourinary symptoms: Negative except as documented in HPI. Musculoskeletal symptoms: Negative except as documented in HPI. Neurologic symptoms: Negative except as documented in HPI. Psychiatric symptoms: Negative except as documented in HPI. Endocrine symptoms: Negative except as documented in HPI. PFSH ED PFSH: Medical History (Updated 07/31/25 @ 11:07 by Alina Best MD) 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 Epicondylitis, lateral (tennis elbow) Tobacco abuse disorder Piriformis syndrome of both sides Asthma Degenerative joint disease (DJD) of lumbar spine Chronic low back pain Psoriatic arthritis Palmoplantar pustular psoriasis High risk medication use Immunization counseling Low back pain Psoriasis Inflammatory arthritis Surgical History (Updated 07/30/25 @ 09:09 by Mckinley Kyle DO) History of tubal ligation History of laparoscopy ovarian cyst Family History Other Diabetes Hypertension Rheumatoid arthritis Denies family history of Lupus CAD (coronary artery disease) Chronic kidney disease (CKD) Cancer Stroke Social History Smoking and tobacco/nicotine status: current every day tobacco/nicotine user cigarettes Packs smoked per day: 1 Years cigarettes smoked: 18 [ Other cigarette details: Started at age 25] Alcohol intake: current Alcohol intake frequency: holidays/special occasions only Substance/Drug Use: never Adopted: No Lives independently: Yes Household members: spouse, family and children Current occupation: disabled Physical Exam Narrative: EXAM NARRATIVE: General: Alert, no acute distress. Head: Normocephalic Neck: Trachea midline Eye: Extraocular movements are intact. Ears, nose, mouth and throat: Oral mucosa moist Respiratory: Respirations are non-labored Musculoskeletal: Normal ROM Back: no step off, no focal tenderness, some paraspinal muscle tenderness Neurological: Alert and oriented, No focal neurological deficit observed. Psychiatric: Cooperative, appropriate mood & affect. Course Vital Signs: Vital signs: Vital Signs Temperature 98.6 F 07/31/25 10:53 Pulse Rate 80 07/31/25 10:53 Respiratory Rate 16 07/31/25 10:53 Blood Pressure 134/75 07/31/25 10:53 Pulse Oximetry 97 07/31/25 10:53 MDM - Back Pain/Injury Medical Decision Making Medical decision making: Differential diagnosis including but not limited to and based on the above HPI, review of systems and physical exam: Patient appears to be having sciatica without any neurologic deficits. No imaging indicated today. Orders placed to evaluate differential diagnosis based on the above differential, HPI and physical exam Consultation: I spoke with Dr. Kyle about his patient by telephone. He agrees with plan. No imaging indicated. Steroids and muscle relaxers on top of her chronic pain medications Reexamination: Patient is fairly tearful on my return. I talked to her about the discussion with Dr. Kyle. No increased work of breathing. No altered mental status. Assessment and plan: Sciatica Chronic low back pain Chronic pain syndrome ? IM Dilaudid, IM Norflex and IM Decadron in the emergency room - Discharged home - Discussed plan with patient. Answered any questions. - Evaluation and treatment of this problem were appropriate in the emergency setting. No radiology studies performed this visit Discharge Plan Discharge Patient Disposition: Home Clinical Impression: Sciatica, Chronic low back pain Condition: Stable Prescriptions: New dexamethasone 6 mg tablet 6 mg PO BID 5 Days Qty: 10 0RF cyclobenzaprine 10 mg tablet 10 mg PO Q8H PRN (Reason: muscle spasm) Qty: 20 0RF No Action Tremfya 100 mg/mL auto-injector 100 mg SUBCUT .[id number] Qty: 1 5RF nystatin 100,000 unit/mL suspension 500,000 unit buccal TID 10 Days Qty: 150 0RF Rx Instructions: administer 1/2 of dose in each side of the mouth (DME) Bone Growth Stimulator See Rx Instructions .Route .MEDSUPPLY Qty: 1 0RF Rx Instructions: As directed (DME) Shower Chair See Rx Instructions .Route .MEDSUPPLY Qty: 1 0RF Rx Instructions: As directed hydrocodone-acetaminophen 5-325 mg tablet 1 - 2 tab PO .Q4-6H PRN (Reason: pain) 7 Days Qty: 40 0RF budesonide-formoterol [Symbicort] 80-4.5 mcg/actuation HFA aerosol inhaler 2 puff inhalation BID Qty: 10.2 6RF hydrocodone-acetaminophen 10-325 mg tablet 1 tab PO Q4H PRN (Reason: pain) 7 Days Qty: 42 0RF hydrocodone-acetaminophen 7.5-325 mg tablet 1 tab PO .q 4-6 Qty: 10 0RF Discharge Orders: Discharge ED (Routine); Ordered 07/31/25 Ordered By: Alina Best Referrals: Itzel Zurita FNP [Primary Care Provider, Family Practice] Discharge Diet: Usual diet Discharge Activity: Increase activity as tolerated Patient Instructions: Sciatica (ED), Opioid Safety, Pain Management, Patient Portal & Diogo Instructions Activity Restrictions/Additional Instructions: Thank you for choosing [facility] for your healthcare needs today. You have been screened and evaluated and felt safe for discharge. Health conditions do change or evolve sometimes and as such it is important that you follow up with your Primary Doctor to be re checked, 3-5 days is a general good time frame for follow up. 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
[2025-07-31] MEDS: orphenadrine 30 mg/mL Inj 2 mL 60 MG IM (11:27)
[2025-07-31] MEDS: HYDROmorphone 0.5 MG/0.5 ML INJ 1 MG IM (11:28)
== END 2025-07-31 11:47 | disposition home or self-care (01) ==
PROVIDERS: Emergency Provider Emergency Medicine; PCP Nurse Practitioner Family
DX: M54.30 Sciatica, unspecified side (principal); M54.50 Low back pain, unspecified; F17.210 Nicotine dependence, cigarettes, uncomplicated
CPT/HCPCS: 96372; 99284; J1100; J1171; J2360

== ENCOUNTER → 2025-08-27 08:31 | Outpatient (BNVA) | payer BC, MEDICAID, SELFPAY | PROVIDERS: PCP Nurse Practitioner Family; Visit Provider Orthopaedic Surgery | DX: Z98.890 Other specified postprocedural states (principal); Z98.1 Arthrodesis status | CPT/HCPCS: 72100 ==

== ENCOUNTER → 2025-09-26 08:21 | Outpatient (BNVA) | payer BC, MEDICAID, SELFPAY | PROVIDERS: PCP Nurse Practitioner Family; Visit Provider Orthopaedic Surgery | DX: Z98.890 Other specified postprocedural states (principal); Z98.1 Arthrodesis status | CPT/HCPCS: 72100 ==

== ENCOUNTER 2025-10-07 07:28 | Outpatient (CLI) | payer BC, MEDICAID, SELFPAY ==
--- NOTE | 2025-10-07 07:30 | CT_ITS ---
WS: [id number] CT LUMBAR SPINE, noncontrast. HISTORY: pain post op TECHNIQUE: Contiguous 2.0 mm axial imaging are performed. Sagittal and coronal reformats are submitted and reviewed. All CT scans at [facility] use at least one of these dose optimization techniques: automated exposure control; mA and/or kV adjustment per patient size (includes targeted exams where dose is matched to clinical indication); or iterative reconstruction. IV contrast: None DLP: 484.30 mGy.cm COMPARISON: 01/09/2016, radiograph 09/26/2025 Increase in lumbar lordosis. Posterior lumbar fusion from L3-S1. L5 anterolisthesis by 7.6 mm. Anterolisthesis has increased since 01/09/2016 but similar to the MRI of 04/15/2025. Disc spaces are mildly narrowed and desiccated. T12-L1: Central disc protrusion with partial calcification encroaching upon the ventral thecal sac. No high-grade stenosis. L1-2: Central disc protrusion with peripheral calcification or osteophyte encroaching on the ventral thecal sac. There is mild contact on the ventral thecal sac impinging upon the subarticular recesses, LEFT greater than RIGHT. L2-3: Normal. L3-4: Mild disc bulging and a small osteophyte from the posterior vertebral body. No significant stenosis. There is a large posterior laminectomy defect. L4-5: Mild osteophytic ridging. Mild annular disc bulging. Large posterior laminectomy defect. No stenosis. Mild bilateral foraminal stenosis. L5-S1: Mild unroofing of the disc. This level is partially obscured by the amount of artifact. No central stenosis. Mild to moderate bilateral foraminal stenosis. Retroperitoneal soft tissues are normal. There is mild stranding in the soft tissues related to the posterior fusion surgery. No focal collections. No complications are evident. CT/CT lumbar spine wo con* [id number] IMPRESSION: 1. Status post posterior lumbar fusion from L3-S1 with an interbody spacer at L5-S1. New since 04/15/2025. 2. Grade 1 anterolisthesis of L5 is similar to 04/15/2025. 3. Large posterior laminectomy defects beginning at the L3 level through L5. 4. No postoperative complications are apparent. No large fluid collections. No lucency or displacement of the screws. 5. Mild to moderate foraminal stenosis at L4-5 and L5-S1 is similar to the zabrina or MRI.
== END 2025-10-07 07:29 | disposition home or self-care (01) ==
PROVIDERS: PCP Nurse Practitioner Family; Visit Provider Orthopaedic Surgery
DX: M51.25 Other intervertebral disc displacement, thoracolumbar region (principal); Z98.1 Arthrodesis status; M51.26 Other intervertebral disc displacement, lumbar region; M25.78 Osteophyte, vertebrae; M48.061 Spinal stenosis, lumbar region without neurogenic claudication; M48.07 Spinal stenosis, lumbosacral region
CPT/HCPCS: 72131

== ENCOUNTER → 2025-10-10 15:30 | Outpatient (BNVA) | payer BC, MEDICAID, SELFPAY | PROVIDERS: PCP Nurse Practitioner Family; Visit Provider Orthopaedic Surgery | DX: Z98.890 Other specified postprocedural states (principal); Z98.1 Arthrodesis status | CPT/HCPCS: 72100 ==